=== PATIENT | male | born 1960 | race Two or more races ===

== ENCOUNTER 2019-01-20 16:55 | Observation (INO) | payer BC ==
[2019-01-20] MEDS ORDERED: Ondansetron 4 MG/2 ML SDV IVPUSH ONE (17:21)
[2019-01-20] MEDS ORDERED: Sodium Chloride 0.9% 1,000 ML IV ONE (17:21)
[2019-01-20] MEDS ORDERED: Ketorolac 30 MG/ML SDV IVPUSH ONE (17:21)
--- NOTE | 2019-01-20 17:33 | EDM.PDOC ---
ED HPI GENERAL MEDICAL PROBLEM - General Chief Complaint: Back Pain or Injury Stated Complaint: HIGH BACK PAIN Time Seen by Provider: 01/20/19 17:15 Source of Information: Reports: Patient History Limitations: Reports: Language Barrier - History of Present Illness INITIAL COMMENTS - FREE TEXT/NARRATIVE: HISTORY AND PHYSICAL: History of present illness: Patient is a 58-year-old male who presents to the ED today with concern of right lower abdominal pain 2 days that radiates to his mid back. Patient rates his discomfort a 9 out of 10 and states it's worse when he presses on his abdomen and better when he rests. Patient states he has not taken anything for the pain or discomfort. Patient denies any prior abdominal surgeries. Patient denies any health history. Patient does smoke about a half a pack a day for over 20-30 years. Patient denies fever, chills, chest pain, shortness of breath, or cough. Denies headache, neck stiff ness, change in vision, syncope, or near syncope. Denies nausea, vomiting, diarrhea, constipation, or dysuria. Has not noted any blood in urine or stool. Patient has been eating and drinking appropriately. Review of systems: As per history of present illness and below otherwise all systems reviewed and negative. Past medical history: As per history of present illness and as reviewed below otherwise noncontributory. Surgical history: As per history of present illness and as reviewed below otherwise noncontributory. Social history: See social history for further information Family history: As per history of present illness and as reviewed below otherwise noncontributory. Physical exam: General: Patient is alert, oriented, and in no acute distress. Patient sitting comfortably on exam table. HEENT: Atraumatic, normocephalic, pupils equal and reactive bilaterally, negative for conjunctival pallor or scleral icterus, mucous membranes moist, TMs normal bilaterally, throat clear, neck supple, nontender, trachea midline. No drooling or trismus noted. No meningeal signs. No hot potato voice noted. Lungs: Clear to auscultation, breath sounds equal bilaterally, chest nontender. Heart: S1S2, regular rate and rhythm without overt murmur Abdomen: Patient has moderate to severe pain of the right lower quadrant with guarding. Positive rebound tenderness. Soft, nondistended. Negative for masses or hepatosplenomegaly. Negative for costovertebral tenderness. Pelvis: Stable nontender. Genitourinary: Deferred. Rectal: Deferred. Skin: Intact, warm, dry. No lesions or rashes noted. Extremities: Atraumatic, negative for cords or calf pain. Neurovascular unremarkable. Neuro: Awake, alert, oriented. Cranial nerves II through XII unremarkable. Cerebellum unremarkable. Motor and sensory unremarkable throughout. Exam nonfocal. Notes: Patient does speak [place] is his primary language but does communicate in Maltese but somewhat limited. [employer] was offered but patient declines at this time Consult to Dr. Montalvo and will admit to observation. Initially patient was hesitant about admission due to concern about his work, after talking to his boss though, he is agreeable upon admission. Voices understanding and is agreeable to plan of care. Denies any further questions or concerns at this time. Diagnostics: CBC, CMP, abd/pelvic, lipase, UA, h pylori, EKG, troponin Therapeutics: Saline, Zofran, Toradol, Protonix Impression: Pancreatitis H. pylori infection Hypokalemia Plan: 1. Admit to observation to Dr. Montalvo. Definitive disposition and diagnosis as appropriate pending reevaluation and review of above. mid back Pain Score (Numeric/FACES): 10 - Related Data Allergies Allergy/AdvReac Type Severity Reaction Status Date / Time No Known Allergies Allergy Verified 01/20/19 17:10 Home Meds: Home Meds . [No Known Home Meds] 01/20/19 [History] Past Medical History - Past Health History Medical/Surgical History: Denies Medical/Surgical History Social & Family History - Family History Family Medical History: Noncontributory - Tobacco Use Smoking Status *Q: Current Every Day Smoker Years of Tobacco use: 35 Packs/Tins Daily: 0.5 - Recreational Drug Use Recreational Drug Use: No ED ROS GENERAL - Review of Systems Review Of Systems: ROS reveals no pertinent complaints other than HPI. ED EXAM, GI/ABD - Physical Exam Exam: See Below (See dictation) Course - Vital Signs Last Recorded V/S: Last Vital Signs Temp 36.4 C 01/20/19 17:08 Pulse 86 01/20/19 20:09 Resp 18 01/20/19 20:09 BP 171/102 H 01/20/19 20:09 Pulse Ox 96 01/20/19 20:09 - Orders/Labs/Meds Orders: Active Orders 24 hr Category Date Time Status Admission Status [Patient Status] [ADT] Stat ADT 01/20/19 20:39 Ordered EKG Documentation Completion [RC] STAT Care 01/20/19 17:22 Active Labs: Laboratory Tests 01/20/19 01/20/19 01/20/19 Range/Units 18:00 18:00 18:00 WBC 11.83 H (4.0-11.0) K/uL RBC 4.24 L (4.50-5.90) M/uL Hgb 14.0 (13.0-17.0) g/dL Hct 41.3 (38.0-50.0) % MCV 97.4 (80.0-98.0) fL MCH 33.0 H (27.0-32.0) pg MCHC 33.9 (31.0-37.0) g/dL RDW Std Deviation 45.8 (28.0-62.0) fl RDW Coeff of Jewell 13 (11.0-15.0) % Plt Count 249 (150-400) K/uL MPV 10.00 (7.40-12.00) fL Neut % (Auto) 58.3 (48.0-80.0) % Lymph % (Auto) 27.6 (16.0-40.0) % Iron % (Auto) 10.1 (0.0-15.0) % Eos % (Auto) 3.5 (0.0-7.0) % Baso % (Auto) 0.5 (0.0-1.5) % Neut # (Auto) 6.9 H (1.4-5.7) K/uL Lymph # (Auto) 3.3 H (0.6-2.4) K/uL Iron # (Auto) 1.2 H (0.0-0.8) K/uL Eos # (Auto) 0.4 (0.0-0.7) K/uL Baso # (Auto) 0.1 (0.0-0.1) K/uL Nucleated RBC % 0.0 /100WBC Nucleated RBCs # 0 K/uL Sodium 135 L (136-148) mmol/L Potassium 2.9 L (3.5-5.1) mmol/L Chloride 100 (98-107) mmol/L Carbon Dioxide 26.0 (21.0-32.0) mmol/L BUN 9 (7.0-18.0) mg/dL Creatinine 0.9 (0.8-1.3) mg/dL Est Cr Clr Drug Dosing 71.13 mL/min Estimated GFR (MDRD) > 60.0 ml/min Glucose 283 H (74-106) mg/dL Calcium 8.1 L (8.5-10.1) mg/dL Total Bilirubin 0.2 (0.2-1.0) mg/dL AST 19 (15-37) IU/L ALT 35 (14-63) IU/L Alkaline Phosphatase 84 (46-116) U/L Troponin I < 0.050 (0.000-0.056) ng/mL Total Protein 6.3 L (6.4-8.2) g/dL Albumin 3.0 L (3.4-5.0) g/dL Globulin 3.3 (2.6-4.0) g/dL Albumin/Globulin Ratio 0.9 (0.9-1.6) Lipase 739 H (73-393) U/L Urine Color Urine Appearance Urine pH (5.0-8.0) Ur Specific [place] (1.001-1.035) Urine Protein (NEGATIVE) mg/dL Urine Glucose (UA) (NEGATIVE) mg/dL Urine Ketones (NEGATIVE) mg/dL Urine Occult Blood (NEGATIVE) Urine Nitrite (NEGATIVE) Urine Bilirubin (NEGATIVE) Urine Urobilinogen (<2.0) EU/dL Ur Leukocyte Esterase (NEGATIVE) Urine RBC (0-2/HPF) Urine WBC (0-5/HPF) Ur Epithelial Cells (NONE-FEW) Urine Bacteria (NEGATIVE) H. pylori IgG Antibody POSITIVE H (NEG) 01/20/19 Range/Units 18:25 WBC (4.0-11.0) K/uL RBC (4.50-5.90) M/uL Hgb (13.0-17.0) g/dL Hct (38.0-50.0) % MCV (80.0-98.0) fL MCH (27.0-32.0) pg MCHC (31.0-37.0) g/dL RDW Std Deviation (28.0-62.0) fl RDW Coeff of [place]ell (11.0-15.0) % Plt Count (150-400) K/uL MPV (7.40-12.00) fL Neut % (Auto) (48.0-80.0) % Lymph % (Auto) (16.0-40.0) % Iron % (Auto) (0.0-15.0) % Eos % (Auto) (0.0-7.0) % Baso % (Auto) (0.0-1.5) % Neut # (Auto) (1.4-5.7) K/uL Lymph # (Auto) (0.6-2.4) K/uL Iron # (Auto) (0.0-0.8) K/uL Eos # (Auto) (0.0-0.7) K/uL Baso # (Auto) (0.0-0.1) K/uL Nucleated RBC % /100WBC Nucleated RBCs # K/uL Sodium (136-148) mmol/L Potassium (3.5-5.1) mmol/L Chloride (98-107) mmol/L Carbon Dioxide (21.0-32.0) mmol/L BUN (7.0-18.0) mg/dL Creatinine (0.8-1.3) mg/dL Est Cr Clr Drug Dosing mL/min Estimated GFR (MDRD) ml/min Glucose (74-106) mg/dL Calcium (8.5-10.1) mg/dL Total Bilirubin (0.2-1.0) mg/dL AST (15-37) IU/L ALT (14-63) IU/L Alkaline Phosphatase (46-116) U/L Troponin I (0.000-0.056) ng/mL Total Protein (6.4-8.2) g/dL Albumin (3.4-5.0) g/dL Globulin (2.6-4.0) g/dL Albumin/Globulin Ratio (0.9-1.6) Lipase (73-393) U/L Urine Color YELLOW Urine Appearance CLEAR Urine pH 6.0 (5.0-8.0) Ur Specific [place] 1.025 (1.001-1.035) Urine Protein 100 H (NEGATIVE) mg/dL Urine Glucose (UA) >=1000 (NEGATIVE) mg/dL Urine Ketones NEGATIVE (NEGATIVE) mg/dL Urine Occult Blood TRACE-INTACT H (NEGATIVE) Urine Nitrite NEGATIVE (NEGATIVE) Urine Bilirubin NEGATIVE (NEGATIVE) Urine Urobilinogen 0.2 (<2.0) EU/dL Ur Leukocyte Esterase NEGATIVE (NEGATIVE) Urine RBC 2-3 (0-2/HPF) Urine WBC 3-6 (0-5/HPF) Ur Epithelial Cells FEW (NONE-FEW) Urine Bacteria FEW (NEGATIVE) H. pylori IgG Antibody (NEG) Meds: Medications Discontinued Medications Generic Name Dose Route Start Last Admin Trade Name Fernanda PRN Reason Stop Dose Admin Sodium Chloride 1,000 mls @ 999 mls/hr 01/20/19 17:21 01/20/19 17:49 Normal Saline IV 01/20/19 18:21 999 mls/hr BOLUS ONE Administration Sterile Water Confirm 01/20/19 19:20 01/20/19 19:28 Sterile Water For Injection Administered 01/20/19 19:21 Not Given Dose 20 mls @ as directed .ROUTE .STK-MED ONE Iopamidol 100 ml 01/20/19 19:05 01/20/19 19:05 Isovue Multipack-370 (76%) IVPUSH 01/20/19 19:06 100 ml ONETIME ONE Administration Ketorolac Tromethamine 30 mg 01/20/19 17:21 01/20/19 17:50 Toradol IVPUSH 01/20/19 17:22 30 mg ONETIME ONE Administration Morphine Sulfate 2 mg 01/20/19 19:35 01/20/19 19:51 Morphine IVPUSH 01/20/19 19:36 2 mg ONETIME ONE Administration Ondansetron HCl 4 mg 01/20/19 17:21 01/20/19 17:52 Zofran IVPUSH 01/20/19 17:22 4 mg ONETIME ONE Administration Pantoprazole Sodium 80 mg 01/20/19 19:14 01/20/19 19:28 Protonix Iv IVPUSH 01/20/19 19:15 80 mg .BOLUS ONE Administration Sterile Water 20 ml 01/20/19 19:22 01/20/19 19:28 Sterile Water For Injection INJECT 01/20/19 19:23 20 ml ONETIME ONE Administration Departure - Departure Time of Disposition: 20:42 Disposition: Refer to Observation Clinical Impression: Hypokalemia, H. pylori infection Pancreatitis Qualifiers: Chronicity: acute Pancreatitis type: unspecified pancreatitis type Acute pancreatitis complication: unspecified Qualified Code(s): K85.90 - Acute pancreatitis without necrosis or infection, unspecified - Discharge Information Referrals: PCP,None [Primary Care Provider] - Forms: ED Department Discharge - My Orders Last 24 Hours: My Active Orders 01/20/19 17:22 EKG Documentation Completion [RC] STAT 01/20/19 20:39 Admission Status [Patient Status] [ADT] Stat - Assessment/Plan Last 24 Hours: My Active Orders 01/20/19 17:22 EKG Documentation Completion [RC] STAT 01/20/19 20:39 Admission Status [Patient Status] [ADT] Stat
[2019-01-20 18:38] LABS: CHLORIDE,CL 100 mmol/L (98-107); SODIUM,NA 135 mmol/L (136-148)
[2019-01-20] MEDS ORDERED: Iopamidol 755 MG/ML 500 ML Multipack Bottle IVPUSH ONE (19:05)
[2019-01-20] MEDS ORDERED: Pantoprazole 40 MG Vial IVPUSH ONE (19:14)
[2019-01-20] MEDS ORDERED: Water For Injection, Sterile 20 ML ONE (19:20)
[2019-01-20] MEDS ORDERED: Water For Injection, Sterile 20 ML SDV INJECT ONE (19:22)
[2019-01-20] MEDS ORDERED: Morphine 2 MG/ML Syringe IVPUSH ONE (19:35)
--- NOTE | 2019-01-20 20:10 | CT ---
INDICATION: Low back pain, bilateral lower quadrant pain. TECHNIQUE: CT abdomen and pelvis acquired with i.v. 100 mL Isovue 370. Coronal and sagittal reformats were obtained. COMPARISON: None FINDINGS: Lower chest: Unremarkable. Liver: Unremarkable. Spleen: Unremarkable. Pancreas: Unremarkable. Gallbladder and bile ducts: Unremarkable. Kidneys: Cluster of parapelvic renal cysts at the midpole, measuring 3.9 x 2.9 cm in axial dimensions on series 201, image 55. Simple exophytic left renal cyst, series 201, image 45, measuring 1.7 cm. No underlying hydronephrosis. No obstructing renal or ureteral calculi. Adrenal glands: Unremarkable. GI tract: Mild thickening of the distal esophagus with small hiatal hernia. Distal esophageal thickening may represent sequela from chronic reflux esophagitis. No abnormal gastric wall thickening. Duodenum crosses midline. Loops of small bowel and large bowel are normal in caliber. No interloop ascites or abnormal mesenteric fat stranding. Normal appendix is well visualized in the right lower quadrant. No acute inflammatory changes involving the large bowel. Vascular: No abdominal aortic aneurysm. There is moderate calcified and soft plaque involving the abdominal aorta. No dissection. Origins of the celiac artery and SMA are patent. Lymph nodes: Unremarkable. Miscellaneous: Unremarkable. No pneumoperitoneum is seen. No significant ascites is noted. Pelvic Organs: Unremarkable. Bones: Unremarkable for age. Moderate degenerative disc disease at L4-5 and L5-S1 levels. IMPRESSION: 1. No clear etiology identified for patient`s clinical symptoms of bilateral lower quadrant abdominal pain and low back pain. 2. Moderate degenerative disc disease at L4-L5 and L5-S1. 3. Normal appendix. 4. Likely a cluster of multiple parapelvic cysts at the right midpole. No underlying hydronephrosis. No radiopaque renal or ureteral calculi. Consider correlation with renal ultrasound for further characterization of right parapelvic renal cysts. 5. Small hiatal hernia with likely sequela of chronic reflux esophagitis in the distal esophagus. Dictated by Matt Salguero MD @ 01/20/2019 8:09:13 PM Please note that all CT scans at this facility use dose modulation, iterative reconstruction, and/or weight-based dosing when appropriate to reduce radiation dose to as low as reasonably achievable. Dictated by: Matt Salguero MD @ 01/20/2019 20:09:21 (Electronically Signed)
[2019-01-20] MEDS: Morphine 2 MG/ML Syringe IVPUSH PRN (22:51)
[2019-01-20] MEDS: Sodium Chloride 0.9% 1,000 ML IV SCH (22:51)
[2019-01-21] MEDS: Morphine 2 MG/ML Syringe IVPUSH PRN ×3 (05:52→15:48)
[2019-01-21 06:08] LABS: CHLORIDE,CL 106 mmol/L (98-107); SODIUM,NA 141 mmol/L (136-148)
[2019-01-21] MEDS: Sodium Chloride 0.9% 1,000 ML IV SCH ×3 (06:54→23:02)
--- NOTE | 2019-01-21 06:54 | PCM.HP ---
H&P History of Present Illness - General Date of Service: 01/21/19 Admit Problem/Dx: Admission Diagnosis/Problem Admission Diagnosis/Problem Pancreatitis Source of Information: Patient History Limitations: Reports: No Limitations - History of Present Illness Initial Comments - Free Text/Narative: The patient is a 58-year-old gentleman who presented to the emergency room with a complaint of abdominal pain that radiates to his back. He has described the pain as sharp and stabbing The patient was admitted to observation on the medical floor at approximately 10 PM. The patient reports that he has been having more pain in his back as opposed to his abdomen. He is denied any nausea or vomiting. The patient has had no specific aggravating or relieving factors. The patient has denied alcohol abuse. He does smoke. He also has denied any fever or chills. He also has not noticed any blood in his urine. The patient has been in his usual state of health and he does not take medications. Onset of Symptoms: Reports: Sudden Duration of Symptoms: Reports: Hour(s):, Getting Worse Location: Reports: Abdomen, Back Quality: Reports: Stabbing, Throbbing Severity: Moderate Improves with: Reports: Medication Worsens with: Reports: Movement Context: Denies: Sick Contact, Trauma Associated Symptoms: Reports: No Other Symptoms mid back Pain Score (Numeric/FACES): 7 - Related Data Allergies/Adverse Reactions: Allergies Allergy/AdvReac Type Severity Reaction Status Date / Time No Known Allergies Allergy Verified 01/20/19 23:58 Home Medications: Home Meds . [No Known Home Meds] 01/20/19 [History] Past Medical History - Past Health History Medical/Surgical History: Denies Medical/Surgical History HEENT History: Reports: None Cardiovascular History: Reports: None Respiratory History: Reports: None Gastrointestinal History: Reports: Helicobacter Pylori Genitourinary History: Reports: None Musculoskeletal History: Reports: None Neurological History: Reports: None Psychiatric History: Reports: None Endocrine/Metabolic History: Reports: None Hematologic History: Reports: None Immunologic History: Reports: None Oncologic (Cancer) History: Reports: None Dermatologic History: Reports: None - Infectious Disease History Infectious Disease History: Reports: None Social & Family History - Family History Family Medical History: Noncontributory - Tobacco Use Smoking Status *Q: Current Every Day Smoker Years of Tobacco use: 35 Packs/Tins Daily: 0.5 - Alcohol Use Alcohol Use History: Yes Number of Drinks Per Day: 2 Alcohol Use Frequency: Daily - Recreational Drug Use Recreational Drug Use: No - Living Situation & Occupation Living situation: Reports: , Alone Occupation: Employed H&P Review of Systems - Review of Systems: Review Of Systems: See Below General: Reports: Weakness HEENT: Reports: No Symptoms Pulmonary: Reports: No Symptoms Cardiovascular: Reports: No Symptoms Gastrointestinal: Reports: Abdominal Pain, Anorexia. Denies: Constipation, Diarrhea, Nausea, Vomiting Genitourinary: Reports: No Symptoms Musculoskeletal: Reports: Back Pain Skin: Reports: No Symptoms Psychiatric: Reports: No Symptoms Neurological: Reports: No Symptoms Hematologic/Lymphatic: Reports: No Symptoms Immunologic: Reports: No Symptoms Exam - Exam Exam: See Below - Vital Signs Vital Signs: Last Vital Signs Temp 36.6 C 01/21/19 04:00 Pulse 78 01/21/19 04:00 Resp 18 01/21/19 04:00 BP 147/80 H 01/21/19 04:00 Pulse Ox 94 L 01/21/19 04:00 Weight: 72.212 kg - Exam Quality Assessment: No: Supplemental Oxygen General: Alert, Oriented, Cooperative, Mild Distress HEENT: Conjunctiva Clear, EACs Clear, EOMI, Hearing Intact, Pupils Equal, PERRLA. No: Mucosa Moist & [place] (Dry) Neck: Supple, Trachea Midline Lungs: Clear to Auscultation, Normal Respiratory Effort Cardiovascular: Regular Rate, Regular Rhythm GI/Abdominal Exam: Normal Bowel Sounds, Soft, No Distention, No Abnormal Bruit, Tender (Epigastrium). No: Guarding, Rigid, Rebound (Male) Exam: Deferred Rectal (Males) Exam: Deferred Back Exam: Normal Inspection Extremities: Normal Inspection, No Pedal Edema Skin: Warm, Dry, Intact Neuro Extensive - Mental Status: Alert, Oriented x3 Psychiatric: Alert, Normal Affect, Normal Mood - Patient Data Lab Results Last 24 hrs: Laboratory Results - last 24 hr 01/20/19 01/20/19 01/20/19 Range/Units 18:00 18:00 18:00 WBC 11.83 H (4.0-11.0) K/uL RBC 4.24 L (4.50-5.90) M/uL Hgb 14.0 (13.0-17.0) g/dL Hct 41.3 (38.0-50.0) % MCV 97.4 (80.0-98.0) fL MCH 33.0 H (27.0-32.0) pg MCHC 33.9 (31.0-37.0) g/dL RDW Std Deviation 45.8 (28.0-62.0) fl RDW Coeff of Jewell 13 (11.0-15.0) % Plt Count 249 (150-400) K/uL MPV 10.00 (7.40-12.00) fL Neut % (Auto) 58.3 (48.0-80.0) % Lymph % (Auto) 27.6 (16.0-40.0) % [place] % (Auto) 10.1 (0.0-15.0) % Eos % (Auto) 3.5 (0.0-7.0) % Baso % (Auto) 0.5 (0.0-1.5) % Neut # (Auto) 6.9 H (1.4-5.7) K/uL Lymph # (Auto) 3.3 H (0.6-2.4) K/uL [place] # (Auto) 1.2 H (0.0-0.8) K/uL Eos # (Auto) 0.4 (0.0-0.7) K/uL Baso # (Auto) 0.1 (0.0-0.1) K/uL Nucleated RBC % 0.0 /100WBC Nucleated RBCs # 0 K/uL Sodium 135 L (136-148) mmol/L Potassium 2.9 L (3.5-5.1) mmol/L Chloride 100 (98-107) mmol/L Carbon Dioxide 26.0 (21.0-32.0) mmol/L BUN 9 (7.0-18.0) mg/dL Creatinine 0.9 (0.8-1.3) mg/dL Est Cr Clr Drug Dosing 71.13 mL/min Estimated GFR (MDRD) > 60.0 ml/min Glucose 283 H (74-106) mg/dL Calcium 8.1 L (8.5-10.1) mg/dL Magnesium (1.8-2.4) mg/dL Total Bilirubin 0.2 (0.2-1.0) mg/dL AST 19 (15-37) IU/L ALT 35 (14-63) IU/L Alkaline Phosphatase 84 (46-116) U/L Troponin I < 0.050 (0.000-0.056) ng/mL Total Protein 6.3 L (6.4-8.2) g/dL Albumin 3.0 L (3.4-5.0) g/dL Globulin 3.3 (2.6-4.0) g/dL Albumin/Globulin Ratio 0.9 (0.9-1.6) Lipase 739 H (73-393) U/L Urine Color Urine Appearance Urine pH (5.0-8.0) Ur Specific [place] (1.001-1.035) Urine Protein (NEGATIVE) mg/dL Urine Glucose (UA) (NEGATIVE) mg/dL Urine Ketones (NEGATIVE) mg/dL Urine Occult Blood (NEGATIVE) Urine Nitrite (NEGATIVE) Urine Bilirubin (NEGATIVE) Urine Urobilinogen (<2.0) EU/dL Ur Leukocyte Esterase (NEGATIVE) Urine RBC (0-2/HPF) Urine WBC (0-5/HPF) Ur Epithelial Cells (NONE-FEW) Urine Bacteria (NEGATIVE) H. pylori IgG Antibody POSITIVE H (NEG) 01/20/19 01/21/19 01/21/19 Range/Units 18:25 05:12 05:12 WBC 11.30 H (4.0-11.0) K/uL RBC 4.21 L (4.50-5.90) M/uL Hgb 13.5 (13.0-17.0) g/dL Hct 41.0 (38.0-50.0) % MCV 97.4 (80.0-98.0) fL MCH 32.1 H (27.0-32.0) pg MCHC 32.9 (31.0-37.0) g/dL RDW Std Deviation 46.1 (28.0-62.0) fl RDW Coeff of [place] 13 (11.0-15.0) % Plt Count 276 (150-400) K/uL MPV 10.50 (7.40-12.00) fL Neut % (Auto) 61.5 (48.0-80.0) % Lymph % (Auto) 26.4 (16.0-40.0) % [place] % (Auto) 8.7 (0.0-15.0) % Eos % (Auto) 2.9 (0.0-7.0) % Baso % (Auto) 0.5 (0.0-1.5) % Neut # (Auto) 7.0 H (1.4-5.7) K/uL Lymph # (Auto) 3.0 H (0.6-2.4) K/uL [place] # (Auto) 1.0 H (0.0-0.8) K/uL Eos # (Auto) 0.3 (0.0-0.7) K/uL Baso # (Auto) 0.1 (0.0-0.1) K/uL Nucleated RBC % 0.0 /100WBC Nucleated RBCs # 0 K/uL Sodium 141 (136-148) mmol/L Potassium 3.0 L (3.5-5.1) mmol/L Chloride 106 (98-107) mmol/L Carbon Dioxide 26.4 (21.0-32.0) mmol/L BUN 7 (7.0-18.0) mg/dL Creatinine 0.8 (0.8-1.3) mg/dL Est Cr Clr Drug Dosing 80.02 mL/min Estimated GFR (MDRD) > 60.0 ml/min Glucose 151 H (74-106) mg/dL Calcium 8.0 L (8.5-10.1) mg/dL Magnesium 1.9 (1.8-2.4) mg/dL Total Bilirubin (0.2-1.0) mg/dL AST (15-37) IU/L ALT (14-63) IU/L Alkaline Phosphatase (46-116) U/L Troponin I (0.000-0.056) ng/mL Total Protein (6.4-8.2) g/dL Albumin (3.4-5.0) g/dL Globulin (2.6-4.0) g/dL Albumin/Globulin Ratio (0.9-1.6) Lipase (73-393) U/L Urine Color YELLOW Urine Appearance CLEAR Urine pH 6.0 (5.0-8.0) Ur Specific [place] 1.025 (1.001-1.035) Urine Protein 100 H (NEGATIVE) mg/dL Urine Glucose (UA) >=1000 (NEGATIVE) mg/dL Urine Ketones NEGATIVE (NEGATIVE) mg/dL Urine Occult Blood TRACE-INTACT H (NEGATIVE) Urine Nitrite NEGATIVE (NEGATIVE) Urine Bilirubin NEGATIVE (NEGATIVE) Urine Urobilinogen 0.2 (<2.0) EU/dL Ur Leukocyte Esterase NEGATIVE (NEGATIVE) Urine RBC 2-3 (0-2/HPF) Urine WBC 3-6 (0-5/HPF) Ur Epithelial Cells FEW (NONE-FEW) Urine Bacteria FEW (NEGATIVE) H. pylori IgG Antibody (NEG) Result Diagrams: 01/21/19 05:12 01/21/19 05:12 - Problem List (1) Pancreatitis SNOMED Code(s): 75421632 ICD Code: K85.90 - ACUTE PANCREATITIS WITHOUT NECROSIS OR INFECTION, UNSP Status: Acute Priority: High Current Visit: Yes Qualifiers: Chronicity: acute Pancreatitis type: unspecified pancreatitis type Acute pancreatitis complication: unspecified Qualified Code(s): K85.90 - Acute pancreatitis without necrosis or infection, unspecified (2) Renal cyst SNOMED Code(s): 907203636 ICD Code: N28.1 - CYST OF KIDNEY, ACQUIRED Status: Acute Priority: High Current Visit: Yes (3) Acute mid back pain SNOMED Code(s): 663738570 ICD Code: M54.9 - DORSALGIA, UNSPECIFIED Status: Acute Priority: High Current Visit: Yes (4) Current smoker SNOMED Code(s): 54560456 ICD Code: F17.200 - NICOTINE DEPENDENCE, UNSPECIFIED, UNCOMPLICATED Status : Chronic Priority: Medium Current Visit: Yes (5) H. pylori infection SNOMED Code(s): 856228675 ICD Code: A04.8 - OTHER SPECIFIED BACTERIAL INTESTINAL INFECTIONS Status: Chronic Priority: Medium Current Visit: Yes (6) Hypokalemia SNOMED Code(s): 06987730 ICD Code: E87.6 - HYPOKALEMIA Status: Acute Priority: High Current Visit: Yes Problem List Initiated/Reviewed/Updated: Yes Orders Last 24hrs: Active Orders 24 hr Category Date Time Status Admission Status [Patient Status] [ADT] Stat ADT 01/20/19 20:39 Active EKG Documentation Completion [RC] STAT Care 01/20/19 17:22 Active NPO [Nothing Per Oral Diet] [DIET] Diet 01/21/19 Breakfast Active Abdomen Ltd [US] Routine Exams 01/21/19 07:00 Ordered Morphine Med 01/20/19 22:38 Active 2 mg IVPUSH Q4H PRN Sodium Chloride 0.9% [Normal Saline] 1,000 ml Med 01/20/19 22:45 Active IV ASDIRECTED Medication Orders Sodium Chloride (Normal Saline) 1,000 mls @ 125 mls/hr IV ASDIRECTED JAMES Last Admin: 01/20/19 22:51 Dose: 125 mls/hr Morphine Sulfate (Morphine) 2 mg IVPUSH Q4H PRN PRN Reason: Pain Last Admin: 01/21/19 05:52 Dose: 2 mg Admin: 01/20/19 22:51 Dose: 2 mg Assessment/Plan Comment:: The patient is an otherwise healthy 58-year-old gentleman who was admitted secondary to pancreatitis and associated symptoms. The patient will be kept nothing by mouth. He'll be fluid resuscitated with normal saline at 125 mg per hour. The patient will also have pain control with the use of IV morphine at 2 mg every 2 hours. The patient will also have his electrolytes replaced. I've also ordered an ultrasound of his right upper quadrant to better characterize his biliary duct along with his kidney cysts. The patient is having more back pain and I suspect that the pain that the patient is experiencing may be related to the renal cysts. Also the patient has positive antigen for H. pylori and he'll be kept on Protonix 40 mg by mouth twice a day. The patient will be started on Prevpac upon discharge. The patient will also be placed on Lovenox for DVT prophylaxis. He's been encouraged to ambulate. Once patient's symptoms have resolved and he has had some improvement and has been able to tolerate diet he should be appropriate for discharge.
[2019-01-21] MEDS: Enoxaparin 40 MG/0.4 ML Syringe SUBCUT SCH (09:43)
--- NOTE | 2019-01-21 14:11 | US ---
EXAMINATION: Right upper quadrant ultrasound HISTORY: Pain COMPARISON: CT dated 01/20/2019 TECHNIQUE: Grayscale, color Doppler and Doppler imaging obtained. FINDINGS: The visualized pancreas appears normal. Common bile duct measures 2 mm. Gallbladder wall thickness is normal. No pericholecystic fluid or shadowing gallstones. The liver is normal contour and echotexture without a focal hepatic mass. The right kidney measures 11 cm and the left kidney measures 11.8 cm [id number] without definite hydronephrosis. Renal cortical and peripelvic cysts are noted. Sonographic Beal sign is negative. IMPRESSION: 1. Renal cortical and peripelvic cysts without definite hydronephrosis. 2. No acute findings within the upper abdomen.
[2019-01-21] MEDS: Pantoprazole 40 MG in Sodium Chloride 0.9% 10 ML IVPUSH SCH (15:49)
[2019-01-21 16:10] LABS: HEMOGLOBIN A1C 7.9 % (4.5-6.2)
[2019-01-21] MEDS ORDERED: Pantoprazole 40 MG Tab.CR PO SCH (17:00)
[2019-01-21] MEDS: Insulin Aspart 100 Units/ML 3 ML Pen SUBCUT SCH ×2 (18:01→21:30)
[2019-01-21] MEDS ORDERED: Insulin Aspart 100 Units/ML 3 ML Pen SUBCUT SCH (21:00)
[2019-01-22 06:32] LABS: CHLORIDE,CL 106 mmol/L (98-107); SODIUM,NA 140 mmol/L (136-148)
[2019-01-22] MEDS: Sodium Chloride 0.9% 1,000 ML IV SCH (06:46)
[2019-01-22] MEDS: Insulin Aspart 100 Units/ML 3 ML Pen SUBCUT SCH (06:48)
[2019-01-22] MEDS: Enoxaparin 40 MG/0.4 ML Syringe SUBCUT SCH (08:45)
[2019-01-22] MEDS: Pantoprazole 40 MG in Sodium Chloride 0.9% 10 ML IVPUSH SCH (08:46)
--- NOTE | 2019-01-22 09:08 | PCM.DCSUM1 ---
Discharge Summary - Hospital Course HPI Initial Comments: Admitted to hospitalization with acute pancreatitis. Diagnosed with new onset diabetes mellitus type 2. Diagnosis: Stroke: No - Discharge Data Discharge Date: 01/22/19 Discharge Disposition: Home, Self-Care 01 Condition: Good - Discharge Diagnosis/Problem(s) (1) Diabetes mellitus type 2 in nonobese SNOMED Code(s): 241990460 ICD Code: E11.9 - TYPE 2 DIABETES MELLITUS WITHOUT COMPLICATIONS Status: Chronic Priority: High Problem Details: New onset (2) Pancreatitis SNOMED Code(s): 77831996 ICD Code: K85.90 - ACUTE PANCREATITIS WITHOUT NECROSIS OR INFECTION, UNSP Status: Resolved Priority: High Qualifiers: Chronicity: acute Pancreatitis type: unspecified pancreatitis type Acute pancreatitis complication: unspecified Qualified Code(s): K85.90 - Acute pancreatitis without necrosis or infection, unspecified (3) Renal cyst SNOMED Code(s): 597034515 ICD Code: N28.1 - CYST OF KIDNEY, ACQUIRED Status: Chronic Priority: High (4) Acute mid back pain SNOMED Code(s): 262492482 ICD Code: M54.9 - DORSALGIA, UNSPECIFIED Status: Chronic Priority: High (5) Current smoker SNOMED Code(s): 61409867 ICD Code: F17.200 - NICOTINE DEPENDENCE, UNSPECIFIED, UNCOMPLICATED Status : Chronic Priority: Medium (6) H. pylori infection SNOMED Code(s): 635324664 ICD Code: A04.8 - OTHER SPECIFIED BACTERIAL INTESTINAL INFECTIONS Status: Chronic Priority: Medium (7) Hypokalemia SNOMED Code(s): 92229289 ICD Code: E87.6 - HYPOKALEMIA Status: Acute Priority: High (8) HTN (hypertension) SNOMED Code(s): 31229102 ICD Code: I10 - ESSENTIAL (PRIMARY) HYPERTENSION Status: Acute Qualifiers: Hypertension type: essential hypertension Qualified Code(s): I10 - Essential (primary) hypertension - Patient Summary/Data Hospital Course: The patient is a 58-year-old gentleman who does not take medications at home was admitted on January 21, 2019 secondary to acute pancreatitis. The patient was noted to have renal cortical and peripelvic cyst without hydronephrosis of his right kidney with the visualized pancreas appearing normal. The patient had been admitted with severe back and epigastric pain. On January 21, 2019 patient had a hemoglobin A1c of 7.9%. The patient essentially has been diagnosed with new onset diabetes mellitus type 2. The patient had no previous signs or symptoms associated with diabetes mellitus. Is likely the pancreatitis have been caused from combination of alcohol use as well as diabetes. The patient had been recommended to abstain from alcohol. Initially the patient had been kept on fluid support, pain control with the use of narcotics and kept nothing by mouth. The patient had improved rapidly and his pain had resolved. The patient' s diet was advanced to clear liquids the following day and he was able to tolerate this. The patient also had his diet advanced to appropriate ADA diet and by day of discharge he had been able to tolerate this. The patient did have a brief encounter with junior copywriter and had been given information on his new onset diabetes. The patient's pancreatitis had also improved and he remained pain-free. Because of the patient's new onset diabetes mellitus type 2 he was started off with metformin 500 mg by mouth daily and this should be advanced as tolerated. The patient also had been noted to be positive for H. pylori antigen and he had been discharged on Prevpac. The patient further had been hypertensive and for renal protection he had been discharged on lisinopril 5 mg by mouth daily. He also been discharged on potassium supplement 10 mEq daily. The patient has been recommended to have good close follow-up with his primary care physician with regards to his new onset diabetes. The patient had improved sufficiently and he had been hemodynamically stable by day of discharge. The patient had been ambulating without difficulty. The patient is also to have an appropriate ADA diet and he has been informed of this. The patient will need to have a follow-up outpatient appointment with junior copywriter. He is also to have activity as tolerated. The patient has been hemodynamically stable and he has been discharged from acute hospitalization with recommendations above. - Patient Instructions Diet: Heart Healthy Diet, Diabetic Diet Activity: As Tolerated Showering/Bathing: No Showering Notify Provider of: Increased Pain - Discharge Plan *PRESCRIPTION DRUG MONITORING PROGRAM REVIEWED*: No *COPY OF PRESCRIPTION DRUG MONITORING REPORT IN PATIENT BRYNO: No Prescriptions/Med Rec: Lansoprazole/Amoxiciln/Clarith [Prevpac Patient Pack] 1 each PO DAILY #1 combo..pkg Lisinopril [Zestril] 5 mg PO DAILY #30 tablet metFORMIN [Glucophage] 500 mg PO DAILY #30 tablet Potassium Chloride [K-Tab ER] 10 meq PO DAILY #30 tablet.er Home Medications: Home Meds Lansoprazole/Amoxiciln/Clarith [Prevpac Patient Pack] 1 each PO DAILY #1 combo..pkg 01/22/19 [Rx] Lisinopril [Zestril] 5 mg PO DAILY #30 tablet 01/22/19 [Rx] Potassium Chloride [K-Tab ER] 10 meq PO DAILY #30 tablet.er 01/22/19 [Rx] metFORMIN [Glucophage] 500 mg PO DAILY #30 tablet 01/22/19 [Rx] Oxygen Therapy Mode: Room Air Patient Handouts: Glipizide; Metformin tablets, Type 2 Diabetes Mellitus, Diagnosis, Adult, Potassium chloride tablets, extended-release tablets or capsules, Amoxicillin; Clarithromycin; Lansoprazole tablets and capsules, Lisinopril tablets, Managing Your Hypertension, Diabetes Mellitus and Nutrition , Adult Referrals: Tonya Harris MD [Physician] - 02/02/19 10:00 am - Discharge Summary/Plan Comment DC Time >30 min.: Yes - General Info Date of Service: 01/23/19 Admission Dx/Problem (Free Text: Admission Diagnosis/Problem Admission Diagnosis/Problem Pancreatitis Subjective Update: Better today. Tolerating diet. Pain-free. Functional Status: Reports: Pain Controlled - Review of Systems General: Reports: No Symptoms HEENT: Reports: No Symptoms Pulmonary: Reports: No Symptoms Cardiovascular: Reports: No Symptoms Gastrointestinal: Reports: No Symptoms Genitourinary: Reports: No Symptoms Musculoskeletal: Reports: No Symptoms Skin: Reports: No Symptoms Neurological: Reports: No Symptoms Psychiatric: Reports: No Symptoms - Patient Data Vitals - Most Recent: Last Vital Signs Temp 36.9 C 01/22/19 08:00 Pulse 71 01/22/19 08:00 Resp 16 01/22/19 08:00 BP 150/84 H 01/22/19 08:00 Pulse Ox 98 01/22/19 08:00 Weight - Most Recent: 72.212 kg I&O - Last 24 hours: Intake & Output 01/21/19 01/22/19 01/22/19 22:59 06:59 14:59 Intake Total 2295 1777 Output Total 656 875 Balance 1535 902 Lab Results - Last 24 hrs: Laboratory Results - last 24 hr 01/21/19 01/21/19 01/21/19 Range/Units 05:12 16:26 21:28 WBC (4.0-11.0) K/uL RBC (4.50-5.90) M/uL Hgb (13.0-17.0) g/dL Hct (38.0-50.0) % MCV (80.0-98.0) fL MCH (27.0-32.0) pg MCHC (31.0-37.0) g/dL RDW Std Deviation (28.0-62.0) fl RDW Coeff of Jewell (11.0-15.0) % Plt Count (150-400) K/uL MPV (7.40-12.00) fL Neut % (Auto) (48.0-80.0) % Lymph % (Auto) (16.0-40.0) % [place] % (Auto) (0.0-15.0) % Eos % (Auto) (0.0-7.0) % Baso % (Auto) (0.0-1.5) % Neut # (Auto) (1.4-5.7) K/uL Lymph # (Auto) (0.6-2.4) K/uL [place] # (Auto) (0.0-0.8) K/uL Eos # (Auto) (0.0-0.7) K/uL Baso # (Auto) (0.0-0.1) K/uL Nucleated RBC % /100WBC Nucleated RBCs # K/uL Sodium (136-148) mmol/L Potassium (3.5-5.1) mmol/L Chloride (98-107) mmol/L Carbon Dioxide (21.0-32.0) mmol/L BUN (7.0-18.0) mg/dL Creatinine (0.8-1.3) mg/dL Est Cr Clr Drug Dosing mL/min Estimated GFR (MDRD) ml/min Glucose (74-106) mg/dL POC Glucose 83 74 (60-110) mg/dL Hemoglobin A1c 7.9 H (4.5-6.2) % Calcium (8.5-10.1) mg/dL Total Bilirubin (0.2-1.0) mg/dL AST (15-37) IU/L ALT (14-63) IU/L Alkaline Phosphatase (46-116) U/L Total Protein (6.4-8.2) g/dL Albumin (3.4-5.0) g/dL Globulin (2.6-4.0) g/dL Albumin/Globulin Ratio (0.9-1.6) 01/22/19 01/22/19 01/22/19 Range/Units 00:23 05:44 05:56 WBC 10.37 (4.0-11.0) K/uL RBC 4.02 L (4.50-5.90) M/uL Hgb 13.1 (13.0-17.0) g/dL Hct 38.8 (38.0-50.0) % MCV 96.5 (80.0-98.0) fL MCH 32.6 H (27.0-32.0) pg MCHC 33.8 (31.0-37.0) g/dL RDW Std Deviation 44.5 (28.0-62.0) fl RDW Coeff of Jewell 13 (11.0-15.0) % Plt Count 255 (150-400) K/uL MPV 10.00 (7.40-12.00) fL Neut % (Auto) 52.3 (48.0-80.0) % Lymph % (Auto) 33.8 (16.0-40.0) % [place] % (Auto) 10.5 (0.0-15.0) % Eos % (Auto) 2.9 (0.0-7.0) % Baso % (Auto) 0.5 (0.0-1.5) % Neut # (Auto) 5.4 (1.4-5.7) K/uL Lymph # (Auto) 3.5 H (0.6-2.4) K/uL [place] # (Auto) 1.1 H (0.0-0.8) K/uL Eos # (Auto) 0.3 (0.0-0.7) K/uL Baso # (Auto) 0.1 (0.0-0.1) K/uL Nucleated RBC % 0.0 /100WBC Nucleated RBCs # 0 K/uL Sodium (136-148) mmol/L Potassium (3.5-5.1) mmol/L Chloride (98-107) mmol/L Carbon Dioxide (21.0-32.0) mmol/L BUN (7.0-18.0) mg/dL Creatinine (0.8-1.3) mg/dL Est Cr Clr Drug Dosing mL/min Estimated GFR (MDRD) ml/min Glucose (74-106) mg/dL POC Glucose 61 102 (60-110) mg/dL Hemoglobin A1c (4.5-6.2) % Calcium (8.5-10.1) mg/dL Total Bilirubin (0.2-1.0) mg/dL AST (15-37) IU/L ALT (14-63) IU/L Alkaline Phosphatase (46-116) U/L Total Protein (6.4-8.2) g/dL Albumin (3.4-5.0) g/dL Globulin (2.6-4.0) g/dL Albumin/Globulin Ratio (0.9-1.6) 01/22/19 Range/Units 05:56 WBC (4.0-11.0) K/uL RBC (4.50-5.90) M/uL Hgb (13.0-17.0) g/dL Hct (38.0-50.0) % MCV (80.0-98.0) fL MCH (27.0-32.0) pg MCHC (31.0-37.0) g/dL RDW Std Deviation (28.0-62.0) fl RDW Coeff of Jewell (11.0-15.0) % Plt Count (150-400) K/uL MPV (7.40-12.00) fL Neut % (Auto) (48.0-80.0) % Lymph % (Auto) (16.0-40.0) % [place] % (Auto) (0.0-15.0) % Eos % (Auto) (0.0-7.0) % Baso % (Auto) (0.0-1.5) % Neut # (Auto) (1.4-5.7) K/uL Lymph # (Auto) (0.6-2.4) K/uL [place] # (Auto) (0.0-0.8) K/uL Eos # (Auto) (0.0-0.7) K/uL Baso # (Auto) (0.0-0.1) K/uL Nucleated RBC % /100WBC Nucleated RBCs # K/uL Sodium 140 (136-148) mmol/L Potassium 3.1 L (3.5-5.1) mmol/L Chloride 106 (98-107) mmol/L Carbon Dioxide 24.4 (21.0-32.0) mmol/L BUN 7 (7.0-18.0) mg/dL Creatinine 0.7 L (0.8-1.3) mg/dL Est Cr Clr Drug Dosing 91.45 mL/min Estimated GFR (MDRD) > 60.0 ml/min Glucose 106 (74-106) mg/dL POC Glucose (60-110) mg/dL Hemoglobin A1c (4.5-6.2) % Calcium 8.0 L (8.5-10.1) mg/dL Total Bilirubin 0.5 (0.2-1.0) mg/dL AST 23 (15-37) IU/L ALT 38 (14-63) IU/L Alkaline Phosphatase 69 (46-116) U/L Total Protein 5.9 L (6.4-8.2) g/dL Albumin 2.7 L (3.4-5.0) g/dL Globulin 3.2 (2.6-4.0) g/dL Albumin/Globulin Ratio 0.8 L (0.9-1.6) Med Orders - Current: Current Medications Enoxaparin Sodium (Lovenox) 40 mg SUBCUT Q24H [facility] Last Admin: 01/22/19 08:45 Dose: 40 mg Sodium Chloride (Normal Saline) 1,000 mls @ 125 mls/hr IV ASDIRECTED [facility] Last Admin: 01/22/19 06:46 Dose: 125 mls/hr Pantoprazole Sodium 40 mg/ (Sodium Chloride) 10 mls @ 300 mls/hr IVPUSH DAILY [facility] Last Admin: 01/22/19 08:46 Dose: 300 mls/hr Insulin Aspart (Novolog) 0 unit SUBCUT QIDACANDBED [facility]; Protocol Last Admin: 01/22/19 06:48 Dose: Not Given Morphine Sulfate (Morphine) 2 mg IVPUSH Q2H PRN PRN Reason: Pain Last Admin: 01/21/19 15:48 Dose: 2 mg Discontinued Medications Sodium Chloride (Normal Saline) 1,000 mls @ 999 mls/hr IV BOLUS ONE Stop: 01/20/19 18:21 Last Admin: 01/20/19 17:49 Dose: 999 mls/hr Sterile Water (Sterile Water For Injection) Confirm Administered Dose 20 mls @ as directed .ROUTE .STK-MED ONE Stop: 01/20/19 19:21 Last Admin: 01/20/19 19:28 Dose: Not Given Insulin Aspart (Novolog) 0 unit SUBCUT ACBREAKFASTANDBED [facility]; Protocol Iopamidol (Isovue Multipack-370 (76%)) 100 ml IVPUSH ONETIME ONE Stop: 01/20/19 19:06 Last Admin: 01/20/19 19:05 Dose: 100 ml Ketorolac Tromethamine (Toradol) 30 mg IVPUSH ONETIME ONE Stop: 01/20/19 17:22 Last Admin: 01/20/19 17:50 Dose: 30 mg Morphine Sulfate (Morphine) 2 mg IVPUSH ONETIME ONE Stop: 01/20/19 19:36 Last Admin: 01/20/19 19:51 Dose: 2 mg Morphine Sulfate (Morphine) 2 mg IVPUSH Q4H PRN PRN Reason: Pain Last Admin: 01/21/19 05:52 Dose: 2 mg Ondansetron HCl (Zofran) 4 mg IVPUSH ONETIME ONE Stop: 01/20/19 17:22 Last Admin: 01/20/19 17:52 Dose: 4 mg Pantoprazole Sodium (Protonix Iv) 80 mg IVPUSH .BOLUS ONE Stop: 01/20/19 19:15 Last Admin: 01/20/19 19:28 Dose: 80 mg Pantoprazole Sodium (Protonix) 40 mg PO BIDAC [facility] Sterile Water (Sterile Water For Injection) 20 ml INJECT ONETIME ONE Stop: 01/20/19 19:23 Last Admin: 01/20/19 19:28 Dose: 20 ml - Exam Quality Assessment: Denies: Supplemental Oxygen General: Reports: Alert, Oriented, Cooperative, No Acute Distress HEENT: Reports: Pupils Equal, Pupils Reactive, EOMI, Mucous Membr. Moist/[place] Neck: Reports: Supple, Trachea Midline Lungs: Reports: Clear to Auscultation, Normal Respiratory Effort Cardiovascular: Reports: Regular Rate, Regular Rhythm GI/Abdominal Exam: Normal Bowel Sounds, Soft, Non-Tender, No Distention Back Exam: Reports: Normal Inspection, Full Range of Motion Extremities: Normal Inspection, Normal Range of Motion, No Pedal Edema Skin: Reports: Warm, Dry, Intact Wound/Incisions: Reports: Healing Well Neurological: Reports: No New Focal Deficit Psy/Mental Status: Reports: Alert, Normal Affect
== END 2019-01-22 10:23 | disposition home or self-care (01) ==
LOC: MW.ED 16:55 → MW.MS 21:32
PROVIDERS: ADMIT Internal Medicine; ATTEND Internal Medicine
DX: K85.90 Acute pancreatitis without necrosis or infection, unspecified (principal); B96.81 Helicobacter pylori [H. pylori] as the cause of diseases classified elsewhere; N28.1 Cyst of kidney, acquired; E11.9 Type 2 diabetes mellitus without complications; E87.6 Hypokalemia; F17.210 Nicotine dependence, cigarettes, uncomplicated
CPT/HCPCS: 36415; 74177; 76705; 80048; 80053; 81001; 82962; 83036; 83690; 83735; 84484; 85025; 86677; 93005; 96361; 96372; 96374; 96375; 96376; 99285; C9113; G0378; J1650; J1885; J2270; J2405; J7040; J7050; Q9967; 99284

== ENCOUNTER 2021-04-16 07:29 | Inpatient (IN) | payer SELFPAY ==
[2021-04-16] MEDS ORDERED: Sodium Chloride 0.9% 1,000 ML IV STA (08:07)
[2021-04-16] MEDS ORDERED: Ketorolac 15 MG/ML SDV IVPUSH STA (08:08)
[2021-04-16 09:05] LABS: BLOOD UREA NITROGEN,BUN 12 mg/dL (7.0-18.0); CARBON DIOXIDE,CO2 28.5 mmol/L (21.0-32.0); CHLORIDE,CL 94 mmol/L (98-107); GLUCOSE RANDOM 276 mg/dL (74-106); POTASSIUM,K 3.7 mmol/L (3.5-5.1); SODIUM,NA 132 mmol/L (136-148)
[2021-04-16] MEDS ORDERED: Iopamidol 755 MG/ML 500 ML Multipack Bottle IVPUSH STA (09:19)
--- NOTE | 2021-04-16 10:03 | CT ---
Indication: Abdominal pain Technique: Volumetric multidetector CT images of the abdomen and pelvis were obtained after the administration of intravenous contrast. 100 cc Isovue 370 low osmolar intravenous contrast Comparison: CT abdomen and pelvis January 20, 2019 Findings: There is basilar atelectasis versus scar with calcified granuloma him here for right lung base. The liver is enlarged with moderate hepatomegaly. There is likely a simple cyst in the anterior right liver lobe. There is no focal abnormality. The portal vein is patent. The gallbladder is unremarkable without evidence of radiopaque calculus. There is no significant common biliary ductal dilatation or abrupt cut off. The spleen is normal in enhancement and size. The stomach and duodenum are grossly unremarkable. The pancreas is normal in enhancement without significant atrophy. The adrenal glands are unremarkable. There is again seen a large complex cystic mass lesion within the mid right kidney similar to previous exam. Additional cystic changes of the kidneys are appreciated. There is mild to moderate stool seen throughout the colon with demonstration of questionable mild thickening of the sigmoid colon without significant Eda colonic inflammation. The appendix is unremarkable. There is no significant mesenteric, retroperitoneal, or pelvic sidewall lymph nodes. The aorta is not aneurysmal with moderate scattered atherosclerotic calcification. There is mild thickening of the dome of the bladder. There is no free fluid or free air. The anterior abdominal wall is intact without significant hernias. The lumbar vertebral body heights are grossly maintained with [id number] degenerative disc disease. There is moderate facet arthrosis. Impression: Mild to moderate sigmoid diverticulosis with mild to moderate segmental thickening of the sigmoid colon which may represent developing low-grade diverticulitis. Stable cystic mass lesion within the right kidney. Stable hepatomegaly and hepatic steatosis. No other acute intra-abdominal abnormalities appreciated. Please note that all CT scans at this facility use dose modulation, iterative reconstruction, and/or weight-based dosing when appropriate to reduce radiation dose to as low as reasonably achievable. Dictated by Ric Ohara MD @ 04/16/2021 10:03:[address] Ric Ohara @ Apr 16 2021 10:03AM
[2021-04-16] MEDS ORDERED: Piperacillin/Tazobactam 3.375 GM in Sodium Chloride 0.9% 50 ML IV ONE (10:07)
--- NOTE | 2021-04-16 10:22 | EDM.PDOC ---
ED HPI GENERAL MEDICAL PROBLEM - General Chief Complaint: Abdominal Pain Stated Complaint: ABDOMINAL PAIN Time Seen by Provider: 04/16/21 07:55 Source of Information: Reports: Patient - History of Present Illness INITIAL COMMENTS - FREE TEXT/NARRATIVE: 60yo male presenting with abdominal pain - epigastric/periumbilical for the last 4 days - started after eating a hamburger on the first night. Nausea, vomited once last night. None since. Diarrhea worsening over this time. Pain does radiate into his back. 06/30. described as "strong" not stabbing or crampy. PMH: listed in computer as DM II with prescription for metformin, and HTN - patient denies this history and does not take these meds PSH: none SOC: tobacco daily ETOH - occasional DRUGS: none Abdomen Pain Score (Numeric/FACES): 10 lower back Pain Score (Numeric/FACES): 3 - Related Data Allergies Allergy/AdvReac Type Severity Reaction Status Date / Time No Known Allergies Allergy Verified 04/16/21 16:06 Home Meds: Home Meds . [No Known Home Meds] 04/16/21 [History] Past Medical History - Past Health History Medical/Surgical History: Denies Medical/Surgical History HEENT History: Reports: None Cardiovascular History: Reports: None Respiratory History: Reports: None Gastrointestinal History: Reports: Helicobacter Pylori Genitourinary History: Reports: None Musculoskeletal History: Reports: None Neurological History: Reports: None Psychiatric History: Reports: None Endocrine/Metabolic History: Reports: None Hematologic History: Reports: None Immunologic History: Reports: None Oncologic (Cancer) History: Reports: None Dermatologic History: Reports: None - Infectious Disease History Infectious Disease History: Reports: None - Past Surgical History Head Surgeries/Procedures: Reports: None HEENT Surgical History: Reports: None Cardiovascular Surgical History: Reports: None Respiratory Surgical History: Reports: None GI Surgical History: Reports: None Male Surgical History: Reports: None Endocrine Surgical History: Reports: None Neurological Surgical History: Reports: None Musculoskeletal Surgical History: Reports: None Oncologic Surgical History: Reports: None Dermatological Surgical History: Reports: None Social & Family History - Family History Family Medical History: No Pertinent Family History - Tobacco Use Tobacco Use Status *Q: Current Every Day Tobacco User Years of Tobacco use: 45 Packs/Tins Daily: 0.5 - Caffeine Use Caffeine Use: Reports: None - Recreational Drug Use Recreational Drug Use: No - Living Situation & Occupation Living situation: Reports: , Alone Occupation: Employed ED ROS GENERAL - Review of Systems Review Of Systems: See Below Constitutional: Denies: Fever Respiratory: Denies: Shortness of Breath Cardiovascular: Denies: Chest Pain GI/Abdominal: Reports: Abdominal Pain, Diarrhea. Denies: Bloody Stool, Constipation ED EXAM, GI/ABD - Physical Exam Exam: See Below General Appearance: Alert, WD/WN, No Apparent Distress Throat/Mouth: Other (MM slightly dry) Neck: Supple Respiratory/Chest: No Respiratory Distress Cardiovascular: Regular Rate, Rhythm GI/Abdominal Exam: Soft, No Distention, No Mass, Tender (diffusely, all 4 quadrants and epigastric. No rebound) Back Exam: Normal Inspection, Full Range of Motion. No: CVA Tenderness (L), CVA Tenderness (R) Extremities: Normal Inspection Neurological: Alert, Oriented #1 Interpretation EKG Date: 04/16/21 Time: 08:26 Rhythm: NSR Rate (Beats/Min): 80 [place]: Normal P-Wave: Present QRS: RBBB ST-T: Normal QT: Normal Course - Vital Signs Text/Narrative:: abdominal pain, radiating to back. Labs with elevated lipase, suspect pancreatitis - CT Abdomen/pelvis shows also findings of diverticulosis with early diverticulitis. Given IVF and zosyn. On reassessment patient reports feeling much more comfortable after toradol. Discussed recommendation for admission, he agrees. Last Recorded V/S: Last Vital Signs Temp 98.6 F 04/17/21 16:00 Pulse 68 04/17/21 16:00 Resp 16 04/17/21 16:00 BP 158/87 H 04/17/21 16:00 Pulse Ox 98 04/17/21 16:00 - Orders/Labs/Meds Orders: Medication Orders Dextrose/Water (50% Dextrose In Water 50 Ml Syringe) 50 ml IVPUSH ASDIRECTED PRN PRN Reason: Hypoglycemia Enoxaparin Sodium (Enoxaparin 40 Mg/0.4 Ml Syringe) 40 mg SUBCUT Q24H [facility] Last Admin: 04/17/21 11:08 Dose: 40 mg Documented by: Admin: 04/16/21 14:21 Dose: 40 mg Documented by: TORY Folic Acid (Folic Acid 50 Mg/10 Ml Mdv) 1 mg SUBCUT DAILY [facility] Last Admin: 04/17/21 09:56 Dose: 1 mg Documented by: Admin: 04/16/21 14:21 Dose: 1 mg Documented by: TORY Glucagon (Glucagon,Human Recombinant 1 Mg Vial) 1 mg IM ASDIRECTED PRN PRN Reason: Hypoglycemia Piperacillin Sod/Tazobactam (Sod 3.375 gm/ Sodium Chloride) 100 mls @ 200 mls/hr IV Q8H [facility] Last Admin: 04/17/21 19:35 Dose: 200 mls/hr Documented by: Infusion: 04/17/21 12:53 Dose: 200 mls/hr Documented by: Admin: 04/17/21 12:23 Dose: 200 mls/hr Documented by: Infusion: 04/17/21 04:04 Dose: 200 mls/hr Documented by: Admin: 04/17/21 03:34 Dose: 200 mls/hr Documented by: Infusion: 04/16/21 20:34 Dose: 200 mls/hr Documented by: Admin: 04/16/21 20:04 Dose: 200 mls/hr Documented by: Infusion: 04/16/21 13:47 Dose: 200 mls/hr Documented by: Admin: 04/16/21 13:17 Dose: 200 mls/hr Documented by: SAHARA Sodium Chloride (Normal Saline) 1,000 mls @ 200 mls/hr IV ASDIRECTED [facility] Last Admin: 04/17/21 17:29 Dose: 200 mls/hr Documented by: Infusion: 04/17/21 08:37 Dose: 200 mls/hr Documented by: Admin: 04/17/21 03:37 Dose: 200 mls/hr Documented by: Infusion: 04/17/21 03:26 Dose: 200 mls/hr Documented by: Admin: 04/16/21 22:26 Dose: 200 mls/hr Documented by: Infusion: 04/16/21 21:26 Dose: 200 mls/hr Documented by: Admin: 04/16/21 16:26 Dose: 200 mls/hr Documented by: CHARU Insulin Aspart (Insulin Aspart 100 Units/Ml 3 Ml Pen) 0 unit SUBCUT Q6H JAMES; Protocol Last Admin: 04/17/21 19:21 Dose: Not Given Documented by: Admin: 04/17/21 13:16 Dose: Not Given Documented by: Admin: 04/17/21 07:26 Dose: Not Given Documented by: Admin: 04/17/21 01:53 Dose: Not Given Documented by: Admin: 04/16/21 18:32 Dose: Not Given Documented by: Admin: 04/16/21 14:23 Dose: 1 unit Documented by: TORY Lorazepam (Lorazepam 2 Mg/Ml Sdv) 0 mg IVPUSH Q4H PRN; Protocol PRN Reason: CIWAA protocol Morphine Sulfate (Morphine 2 Mg/Ml Syringe) 2 mg IVPUSH Q4H PRN PRN Reason: Pain Ondansetron HCl (Ondansetron 4 Mg Tab.Dis) 4 mg PO Q4H PRN PRN Reason: nausea, able to take PO Labs: Laboratory Tests 04/16/21 04/16/21 04/16/21 Range/Units 08:17 08:28 08:28 WBC 12.14 H (4.0-11.0) K/uL RBC 4.53 (4.50-5.90) M/uL Hgb 15.3 (13.0-17.0) g/dL Hct 43.0 (38.0-50.0) % MCV 94.9 (80.0-98.0) fL MCH 33.8 H (27.0-32.0) pg MCHC 35.6 (31.0-37.0) g/dL RDW Std Deviation 42.2 (28.0-62.0) fl RDW Coeff of [place] 12 (11.0-15.0) % Plt Count 249 (150-400) K/uL MPV 10.70 (7.40-12.00) fL Neut % (Auto) 72.2 (48.0-80.0) % Lymph % (Auto) 15.8 L (16.0-40.0) % [place] % (Auto) 10.5 (0.0-15.0) % Eos % (Auto) 1.2 (0.0-7.0) % Baso % (Auto) 0.3 (0.0-1.5) % Neut # (Auto) 8.8 H (1.4-5.7) K/uL Lymph # (Auto) 1.9 (0.6-2.4) K/uL [place] # (Auto) 1.3 H (0.0-0.8) K/uL Eos # (Auto) 0.1 (0.0-0.7) K/uL Baso # (Auto) 0.0 (0.0-0.1) K/uL Nucleated RBC % 0.0 /100WBC Nucleated RBCs # 0 K/uL Sodium 132 L (136-148) mmol/L Potassium 3.7 (3.5-5.1) mmol/L Chloride 94 L (98-107) mmol/L Carbon Dioxide 28.5 (21.0-32.0) mmol/L BUN 12 (7.0-18.0) mg/dL Creatinine 0.8 (0.8-1.3) mg/dL Est Cr Clr Drug Dosing 81.19 mL/min Estimated GFR (MDRD) > 60.0 ml/min Glucose 276 H (74-106) mg/dL POC Glucose (70-99) mg/dL Calcium 8.1 L (8.5-10.1) mg/dL Total Bilirubin 0.8 (0.2-1.0) mg/dL AST 39 H (15-37) IU/L ALT 64 H (14-63) IU/L Alkaline Phosphatase 130 H (46-116) U/L Total Protein 7.1 (6.4-8.2) g/dL Albumin 3.1 L (3.4-5.0) g/dL Globulin 4.0 (2.6-4.0) g/dL Albumin/Globulin Ratio 0.8 L (0.9-1.6) Triglycerides (0-200) mg/dL Cholesterol (50-200) mg/dL LDL Cholesterol, Calc (60-180) mg/dL VLDL Cholesterol (5-55) mg/dL HDL Cholesterol (40-60) mg/dL Cholesterol/HDL Ratio (3.3-6.0) Lipase (73-393) U/L Urine Color YELLOW Urine Appearance CLEAR Urine pH 6.0 (5.0-8.0) Ur Specific [place] 1.025 (1.001-1.035) Urine Protein 100 H (NEGATIVE) mg/dL Urine Glucose (UA) 500 H (NEGATIVE) mg/dL Urine Ketones >=80 (NEGATIVE) mg/dL Urine Occult Blood SMALL H (NEGATIVE) Urine Nitrite NEGATIVE (NEGATIVE) Urine Bilirubin NEGATIVE (NEGATIVE) Urine Urobilinogen 0.2 (<2.0) EU/dL Ur Leukocyte Esterase NEGATIVE (NEGATIVE) Urine RBC 0-1 (0-2/HPF) Urine WBC 0-1 (0-5/HPF) Ur Epithelial Cells RARE (NONE-FEW) Urine Bacteria RARE (NEGATIVE) Urine Mucus LIGHT (NONE-MOD) Influenza Type A RNA (NEGATIVE) Influenza Type B RNA (NEGATIVE) SARS-CoV-2 RNA (TRAY) (NEGATIVE) 04/16/21 04/16/21 04/16/21 Range/Units 08:28 08:28 08:32 WBC (4.0-11.0) K/uL RBC (4.50-5.90) M/uL Hgb (13.0-17.0) g/dL Hct (38.0-50.0) % MCV (80.0-98.0) fL MCH (27.0-32.0) pg MCHC (31.0-37.0) g/dL RDW Std Deviation (28.0-62.0) fl RDW Coeff of [place] (11.0-15.0) % Plt Count (150-400) K/uL MPV (7.40-12.00) fL Neut % (Auto) (48.0-80.0) % Lymph % (Auto) (16.0-40.0) % [place] % (Auto) (0.0-15.0) % Eos % (Auto) (0.0-7.0) % Baso % (Auto) (0.0-1.5) % Neut # (Auto) (1.4-5.7) K/uL Lymph # (Auto) (0.6-2.4) K/uL [place] # (Auto) (0.0-0.8) K/uL Eos # (Auto) (0.0-0.7) K/uL Baso # (Auto) (0.0-0.1) K/uL Nucleated RBC % /100WBC Nucleated RBCs # K/uL Sodium (136-148) mmol/L Potassium (3.5-5.1) mmol/L Chloride (98-107) mmol/L Carbon Dioxide (21.0-32.0) mmol/L BUN (7.0-18.0) mg/dL Creatinine (0.8-1.3) mg/dL Est Cr Clr Drug Dosing mL/min Estimated GFR (MDRD) ml/min Glucose (74-106) mg/dL POC Glucose 259 H (70-99) mg/dL Calcium (8.5-10.1) mg/dL Total Bilirubin (0.2-1.0) mg/dL AST (15-37) IU/L ALT (14-63) IU/L Alkaline Phosphatase (46-116) U/L Total Protein (6.4-8.2) g/dL Albumin (3.4-5.0) g/dL Globulin (2.6-4.0) g/dL Albumin/Globulin Ratio (0.9-1.6) Triglycerides 159 (0-200) mg/dL Cholesterol 221 H (50-200) mg/dL LDL Cholesterol, Calc 133 (60-180) mg/dL VLDL Cholesterol 31 (5-55) mg/dL HDL Cholesterol 56 (40-60) mg/dL Cholesterol/HDL Ratio 3.9 (3.3-6.0) Lipase 2614 H (73-393) U/L Urine Color Urine Appearance Urine pH (5.0-8.0) Ur Specific [place] (1.001-1.035) Urine Protein (NEGATIVE) mg/dL Urine Glucose (UA) (NEGATIVE) mg/dL Urine Ketones (NEGATIVE) mg/dL Urine Occult Blood (NEGATIVE) Urine Nitrite (NEGATIVE) Urine Bilirubin (NEGATIVE) Urine Urobilinogen (<2.0) EU/dL Ur Leukocyte Esterase (NEGATIVE) Urine RBC (0-2/HPF) Urine WBC (0-5/HPF) Ur Epithelial Cells (NONE-FEW) Urine Bacteria (NEGATIVE) Urine Mucus (NONE-MOD) Influenza Type A RNA (NEGATIVE) Influenza Type B RNA (NEGATIVE) SARS-CoV-2 RNA (TRAY) (NEGATIVE) 04/16/21 Range/Units 09:38 WBC (4.0-11.0) K/uL RBC (4.50-5.90) M/uL Hgb (13.0-17.0) g/dL Hct (38.0-50.0) % MCV (80.0-98.0) fL MCH (27.0-32.0) pg MCHC (31.0-37.0) g/dL RDW Std Deviation (28.0-62.0) fl RDW Coeff of [place] (11.0-15.0) % Plt Count (150-400) K/uL MPV (7.40-12.00) fL Neut % (Auto) (48.0-80.0) % Lymph % (Auto) (16.0-40.0) % [place] % (Auto) (0.0-15.0) % Eos % (Auto) (0.0-7.0) % Baso % (Auto) (0.0-1.5) % Neut # (Auto) (1.4-5.7) K/uL Lymph # (Auto) (0.6-2.4) K/uL [place] # (Auto) (0.0-0.8) K/uL Eos # (Auto) (0.0-0.7) K/uL Baso # (Auto) (0.0-0.1) K/uL Nucleated RBC % /100WBC Nucleated RBCs # K/uL Sodium (136-148) mmol/L Potassium (3.5-5.1) mmol/L Chloride (98-107) mmol/L Carbon Dioxide (21.0-32.0) mmol/L BUN (7.0-18.0) mg/dL Creatinine (0.8-1.3) mg/dL Est Cr Clr Drug Dosing mL/min Estimated GFR (MDRD) ml/min Glucose (74-106) mg/dL POC Glucose (70-99) mg/dL Calcium (8.5-10.1) mg/dL Total Bilirubin (0.2-1.0) mg/dL AST (15-37) IU/L ALT (14-63) IU/L Alkaline Phosphatase (46-116) U/L Total Protein (6.4-8.2) g/dL Albumin (3.4-5.0) g/dL Globulin (2.6-4.0) g/dL Albumin/Globulin Ratio (0.9-1.6) Triglycerides (0-200) mg/dL Cholesterol (50-200) mg/dL LDL Cholesterol, Calc (60-180) mg/dL VLDL Cholesterol (5-55) mg/dL HDL Cholesterol (40-60) mg/dL Cholesterol/HDL Ratio (3.3-6.0) Lipase (73-393) U/L Urine Color Urine Appearance Urine pH (5.0-8.0) Ur Specific [place] (1.001-1.035) Urine Protein (NEGATIVE) mg/dL Urine Glucose (UA) (NEGATIVE) mg/dL Urine Ketones (NEGATIVE) mg/dL Urine Occult Blood (NEGATIVE) Urine Nitrite (NEGATIVE) Urine Bilirubin (NEGATIVE) Urine Urobilinogen (<2.0) EU/dL Ur Leukocyte Esterase (NEGATIVE) Urine RBC (0-2/HPF) Urine WBC (0-5/HPF) Ur Epithelial Cells (NONE-FEW) Urine Bacteria (NEGATIVE) Urine Mucus (NONE-MOD) Influenza Type A RNA NEGATIVE (NEGATIVE) Influenza Type B RNA NEGATIVE (NEGATIVE) SARS-CoV-2 RNA (TRAY) NEGATIVE (NEGATIVE) Meds: Medications Generic Name Dose Route Start Last Admin Trade Name Freq PRN Reason Stop Dose Admin Dextrose/Water 50 ml 04/16/21 13:30 50% Dextrose In Water 50 Ml Syringe IVPUSH ASDIRECTED PRN Hypoglycemia Enoxaparin Sodium 40 mg 04/16/21 12:00 04/17/21 11:08 Enoxaparin 40 Mg/0.4 Ml Syringe SUBCUT 40 mg Q24H JAMES Administration Folic Acid 1 mg 04/16/21 14:00 04/17/21 09:56 Folic Acid 50 Mg/10 Ml Mdv SUBCUT 1 mg DAILY JAMES Administration Glucagon 1 mg 04/16/21 13:30 Glucagon,Human Recombinant 1 Mg Vial IM ASDIRECTED PRN Hypoglycemia Piperacillin Sod/Tazobactam 100 mls @ 200 mls/hr 04/16/21 12:15 04/17/21 19:35 Sod 3.375 gm/ Sodium Chloride IV 200 mls/hr Q8H JAMES Administration Sodium Chloride 1,000 mls @ 200 mls/hr 04/16/21 13:30 04/17/21 17:29 Normal Saline IV 200 mls/hr ASDIRECTED JAMES Administration Insulin Aspart 0 unit 04/16/21 13:30 04/17/21 19:21 Insulin Aspart 100 Units/Ml 3 Ml Pen SUBCUT Not Given Q6H JAMES Protocol Lorazepam 0 mg 04/16/21 13:07 Lorazepam 2 Mg/Ml Sdv IVPUSH Q4H PRN [facility] protocol Protocol Morphine Sulfate 2 mg 04/17/21 12:23 Morphine 2 Mg/Ml Syringe IVPUSH Q4H PRN Pain Ondansetron HCl 4 mg 04/16/21 11:58 Ondansetron 4 Mg Tab.Dis PO Q4H PRN nausea, able to take PO Discontinued Medications Generic Name Dose Route Start Last Admin Trade Name Freq PRN Reason Stop Dose Admin Sodium Chloride 1,000 mls @ 999 mls/hr 04/16/21 08:07 04/16/21 08:18 Normal Saline IV 04/16/21 09:07 999 mls/hr STAT STA Administration Piperacillin Sod/Tazobactam 50 mls @ 100 mls/hr 04/16/21 10:07 04/16/21 10:33 Sod 3.375 gm/ Sodium Chloride IV 04/16/21 10:36 100 mls/hr ONETIME ONE Administration Sodium Chloride 1,000 mls @ 125 mls/hr 04/16/21 12:00 Normal Saline IV ASDIRECTED JAMES Sodium Chloride 1,000 mls @ 999 mls/hr 04/16/21 13:06 04/16/21 14:13 Normal Saline IV 04/16/21 14:06 999 mls/hr .Bolus ONE Administration Sodium Chloride 1,000 mls @ 999 mls/hr 04/16/21 14:30 04/16/21 15:28 Normal Saline IV 04/16/21 15:30 999 mls/hr .Bolus ONE Administration Potassium Chloride/Sodium Chloride 1,000 mls @ 200 mls/hr 04/17/21 08:15 Normal Saline With 40 Meq Kcl IV ASDIRECTED JAMES Potassium Chloride/Sodium Chloride 1,000 mls @ 200 mls/hr 04/17/21 11:00 04/17/21 10:59 Normal Saline With 40 Meq Kcl IV 04/17/21 15:59 200 mls/hr ONETIME ONE Administration Iopamidol 100 ml 04/16/21 09:19 04/16/21 09:20 Iopamidol 755 Mg/Ml 500 Ml Multipack Bottle IVPUSH 04/16/21 09:20 100 ml ONETIME STA Administration Ketorolac Tromethamine 15 mg 04/16/21 08:08 04/16/21 08:18 Ketorolac 15 Mg/Ml Sdv IVPUSH 04/16/21 08:09 15 mg STAT STA Administration Ketorolac Tromethamine 15 mg 04/17/21 12:18 Ketorolac 15 Mg/Ml Sdv IVPUSH 04/22/21 12:18 Q6H PRN Pain Morphine Sulfate 2 mg 04/16/21 11:58 Morphine 2 Mg/Ml Syringe IVPUSH 04/17/21 12:02 Q4HR PRN Pain (severe 7-10) Morphine Sulfate 2 mg 04/16/21 12:56 04/17/21 03:34 Morphine 2 Mg/Ml Syringe IVPUSH 2 mg Q2H PRN Administration Pain (severe 7-10) Thiamine HCl 100 mg 04/16/21 13:45 04/16/21 14:22 Thiamine 200 Mg/2 Ml Mdv IVPUSH 04/16/21 13:46 100 mg ONETIME ONE Administration Departure - Departure Time of Disposition: 10:17 Disposition: Admitted As Inpatient 65 Clinical Impression: Diabetes mellitus type 2 in nonobese, Diverticulitis, Pancreatitis - Discharge Information Sepsis Event Note (ED) - Evaluation Sepsis Screening Result: No Definite Risk ED Communication - Discussed Case With (1) Discussed Case With (1): Admitting Provider Person/s Notified (1): Lui Beavers Date: 04/16/21 Time Called: 10:17
[2021-04-16 10:25] LABS: CORONAVIRUS COVID-19 NAA NEGATIVE (NEGATIVE); INFLUENZA A NAA NEGATIVE (NEGATIVE); INFLUENZA B NAA NEGATIVE (NEGATIVE)
--- NOTE | 2021-04-16 11:11 | US ---
HISTORY: 60-year-old with abdominal pain and abnormal liver function studies. TECHNIQUE: Grayscale ultrasound examination of the abdomen and retroperitoneum was performed. COMPARISON: CT abdomen and pelvis performed earlier the same day. FINDINGS: Noncirrhotic liver morphology. Liver demonstrates abnormally increased echogenicity, a nonspecific finding that can be seen in setting of fatty infiltration. There is no significant biliary dilatation, and the common bile duct measures 2.6 mm. There is no ascites. The gallbladder is fluid-filled with no evidence of stones or wall thickening. No sonographic Beal`s sign. Right kidney measures 12.8 x 2.7 x 6.7 cm. Multiple parapelvic cysts. No sonographic evidence for hydronephrosis, mass, or stone. Visualized portions of the pancreas are unremarkable. IMPRESSION: 1. No sonographic evidence for cholelithiasis or acute cholecystitis. 2. Hepatic steatosis. Dictated by Rory Joseph MD @ 04/16/2021 11:09:[address] Rory Joseph @ Apr 16 2021 11:09AM
--- NOTE | 2021-04-16 11:50 | PCM.HP.2 ---
H&P History of Present Illness - General Date of Service: 04/16/21 Admit Problem/Dx: Admission Diagnosis/Problem Admission Diagnosis/Problem Pancreatitis Source of Information: Copyright Clerk History Limitations: Reports: Language Barrier, Other (History obtained via online japanese interpreter) - History of Present Illness Initial Comments - Free Text/Narative: 60-year-old male with a history of one episode of pancreatitis in 2019 presented to the ER complaining of epigastric and central abdominal pain radiating to his back which began after eating a hamburger on Thursday. Patient had one episode of vomiting last night which was nonbilious, nonbloody. He denies exacerbating factors. Patient's abdominal pain is currently 5/10. He denies nausea, diarrhea, bloody stools, dysuria, hematuria, chest pain or palpitations. He denies dyspnea on exertion. Patient denies a history of hyperlipidemia or hypertension. He states that he is currently being worked up for diabetes mellitus right now. Denies history of surgeries. Patient drinks 1 to 2 cups of tequila per week. Patient smokes 5 cigarettes/day. Patient denies recent travel or sick contacts. Associated Symptoms: Reports: Nausea/Vomiting. Denies: Confusion, Chest Pain, Diaphoresis, Fever/Chills, Headaches, Shortness of Breath, Weakness Abdomen Pain Score (Numeric/FACES): 10 - Related Data Allergies/Adverse Reactions: Allergies Allergy/AdvReac Type Severity Reaction Status Date / Time No Known Allergies Allergy Verified 04/16/21 16:06 Home Medications: Home Meds . [No Known Home Meds] 04/16/21 [History] Past Medical History - Past Health History Medical/Surgical History: Denies Medical/Surgical History (Currently being worked up for diabetes mellitus.) HEENT History: Reports: None Cardiovascular History: Reports: None Respiratory History: Reports: None Gastrointestinal History: Reports: Helicobacter Pylori, Pancreatitis Genitourinary History: Reports: None Musculoskeletal History: Reports: None Neurological History: Reports: None Psychiatric History: Reports: None Endocrine/Metabolic History: Reports: None Hematologic History: Reports: None Immunologic History: Reports: None Oncologic (Cancer) History: Reports: None Dermatologic History: Reports: None - Infectious Disease History Infectious Disease History: Reports: None, Helicobacter Pylori - Past Surgical History Head Surgeries/Procedures: Reports: None HEENT Surgical History: Reports: None Cardiovascular Surgical History: Reports: None Respiratory Surgical History: Reports: None GI Surgical History: Reports: None Male Surgical History: Reports: None Endocrine Surgical History: Reports: None Neurological Surgical History: Reports: None Musculoskeletal Surgical History: Reports: None Oncologic Surgical History: Reports: None Dermatological Surgical History: Reports: None Social & Family History - Family History Family Medical History: No Pertinent Family History - Tobacco Use Tobacco Use Status *Q: Current Every Day Tobacco User Years of Tobacco use: 45 Packs/Tins Daily: 0.5 - Caffeine Use Caffeine Use: Reports: None - Alcohol Use Alcohol Use Comment: Patient drinks 1 to 2 cups of tequila per week. - Recreational Drug Use Recreational Drug Use: No - Living Situation & Occupation Living situation: Reports: , Alone Occupation: Employed H&P Review of Systems - Review of Systems: Review Of Systems: See Below General: Denies: Fever, Chills, Weakness HEENT: Reports: No Symptoms Pulmonary: Denies: Shortness of Breath, Wheezing, Cough Cardiovascular: Denies: Chest Pain, Palpitations, Dyspnea on Exertion Gastrointestinal: Reports: Abdominal Pain, Vomiting. Denies: Bloody Stool, Constipation, Diarrhea, Hematemesis, Hematochezia, Nausea Genitourinary: Denies: Dysuria Musculoskeletal: Reports: No Symptoms Skin: Reports: No Symptoms Neurological: Reports: No Symptoms Hematologic/Lymphatic: Reports: No Symptoms Exam - Exam Exam: See Below - Vital Signs Vital Signs: Last Vital Signs Temp 97.5 F 04/16/21 10:37 Pulse 74 04/16/21 11:06 Resp 17 04/16/21 10:36 BP 146/81 H 04/16/21 11:06 Pulse Ox 97 04/16/21 11:06 Weight: 160 lb - Exam General: Alert, Oriented, Cooperative, Mild Distress HEENT: Conjunctiva Clear, EOMI Neck: Supple Lungs: Clear to Auscultation, Normal Respiratory Effort Cardiovascular: Regular Rate, Regular Rhythm GI/Abdominal Exam: Soft, Guarding, Tender. No: Rigid, Rebound Back Exam: No: CVA Tenderness (L), CVA Tenderness (R) Extremities: Normal Inspection, Normal Range of Motion. No: Pedal Edema Peripheral Pulses: 2+: Dorsalis Pedis (L), Dorsalis Pedis (R) Skin: Warm, Dry, Intact Neurological: Normal Speech Neuro Extensive - Mental Status: Alert, Oriented x3 - Patient Data Lab Results Last 24 hrs: Laboratory Results - last 24 hr 04/16/21 04/16/21 04/16/21 Range/Units 08:17 08:28 08:28 WBC 12.14 H (4.0-11.0) K/uL RBC 4.53 (4.50-5.90) M/uL Hgb 15.3 (13.0-17.0) g/dL Hct 43.0 (38.0-50.0) % MCV 94.9 (80.0-98.0) fL MCH 33.8 H (27.0-32.0) pg MCHC 35.6 (31.0-37.0) g/dL RDW Std Deviation 42.2 (28.0-62.0) fl RDW Coeff of [place] 12 (11.0-15.0) % Plt Count 249 (150-400) K/uL MPV 10.70 (7.40-12.00) fL Neut % (Auto) 72.2 (48.0-80.0) % Lymph % (Auto) 15.8 L (16.0-40.0) % [place] % (Auto) 10.5 (0.0-15.0) % Eos % (Auto) 1.2 (0.0-7.0) % Baso % (Auto) 0.3 (0.0-1.5) % Neut # (Auto) 8.8 H (1.4-5.7) K/uL Lymph # (Auto) 1.9 (0.6-2.4) K/uL [place] # (Auto) 1.3 H (0.0-0.8) K/uL Eos # (Auto) 0.1 (0.0-0.7) K/uL Baso # (Auto) 0.0 (0.0-0.1) K/uL Nucleated RBC % 0.0 /100WBC Nucleated RBCs # 0 K/uL Sodium 132 L (136-148) mmol/L Potassium 3.7 (3.5-5.1) mmol/L Chloride 94 L (98-107) mmol/L Carbon Dioxide 28.5 (21.0-32.0) mmol/L BUN 12 (7.0-18.0) mg/dL Creatinine 0.8 (0.8-1.3) mg/dL Est Cr Clr Drug Dosing 81.19 mL/min Estimated GFR (MDRD) > 60.0 ml/min Glucose 276 H (74-106) mg/dL POC Glucose (70-99) mg/dL Calcium 8.1 L (8.5-10.1) mg/dL Total Bilirubin 0.8 (0.2-1.0) mg/dL AST 39 H (15-37) IU/L ALT 64 H (14-63) IU/L Alkaline Phosphatase 130 H (46-116) U/L Total Protein 7.1 (6.4-8.2) g/dL Albumin 3.1 L (3.4-5.0) g/dL Globulin 4.0 (2.6-4.0) g/dL Albumin/Globulin Ratio 0.8 L (0.9-1.6) Triglycerides (0-200) mg/dL Cholesterol (50-200) mg/dL LDL Cholesterol, Calc (60-180) mg/dL VLDL Cholesterol (5-55) mg/dL HDL Cholesterol (40-60) mg/dL Cholesterol/HDL Ratio (3.3-6.0) Lipase (73-393) U/L Urine Color YELLOW Urine Appearance CLEAR Urine pH 6.0 (5.0-8.0) Ur Specific [place] 1.025 (1.001-1.035) Urine Protein 100 H (NEGATIVE) mg/dL Urine Glucose (UA) 500 H (NEGATIVE) mg/dL Urine Ketones >=80 (NEGATIVE) mg/dL Urine Occult Blood SMALL H (NEGATIVE) Urine Nitrite NEGATIVE (NEGATIVE) Urine Bilirubin NEGATIVE (NEGATIVE) Urine Urobilinogen 0.2 (<2.0) EU/dL Ur Leukocyte Esterase NEGATIVE (NEGATIVE) Urine RBC 0-1 (0-2/HPF) Urine WBC 0-1 (0-5/HPF) Ur Epithelial Cells RARE (NONE-FEW) Urine Bacteria RARE (NEGATIVE) Urine Mucus LIGHT (NONE-MOD) Influenza Type A RNA (NEGATIVE) Influenza Type B RNA (NEGATIVE) SARS-CoV-2 RNA (TRAY) (NEGATIVE) 04/16/21 04/16/21 04/16/21 Range/Units 08:28 08:28 08:32 WBC (4.0-11.0) K/uL RBC (4.50-5.90) M/uL Hgb (13.0-17.0) g/dL Hct (38.0-50.0) % MCV (80.0-98.0) fL MCH (27.0-32.0) pg MCHC (31.0-37.0) g/dL RDW Std Deviation (28.0-62.0) fl RDW Coeff of [place] (11.0-15.0) % Plt Count (150-400) K/uL MPV (7.40-12.00) fL Neut % (Auto) (48.0-80.0) % Lymph % (Auto) (16.0-40.0) % [place] % (Auto) (0.0-15.0) % Eos % (Auto) (0.0-7.0) % Baso % (Auto) (0.0-1.5) % Neut # (Auto) (1.4-5.7) K/uL Lymph # (Auto) (0.6-2.4) K/uL [place] # (Auto) (0.0-0.8) K/uL Eos # (Auto) (0.0-0.7) K/uL Baso # (Auto) (0.0-0.1) K/uL Nucleated RBC % /100WBC Nucleated RBCs # K/uL Sodium (136-148) mmol/L Potassium (3.5-5.1) mmol/L Chloride (98-107) mmol/L Carbon Dioxide (21.0-32.0) mmol/L BUN (7.0-18.0) mg/dL Creatinine (0.8-1.3) mg/dL Est Cr Clr Drug Dosing mL/min Estimated GFR (MDRD) ml/min Glucose (74-106) mg/dL POC Glucose 259 H (70-99) mg/dL Calcium (8.5-10.1) mg/dL Total Bilirubin (0.2-1.0) mg/dL AST (15-37) IU/L ALT (14-63) IU/L Alkaline Phosphatase (46-116) U/L Total Protein (6.4-8.2) g/dL Albumin (3.4-5.0) g/dL Globulin (2.6-4.0) g/dL Albumin/Globulin Ratio (0.9-1.6) Triglycerides 159 (0-200) mg/dL Cholesterol 221 H (50-200) mg/dL LDL Cholesterol, Calc 133 (60-180) mg/dL VLDL Cholesterol 31 (5-55) mg/dL HDL Cholesterol 56 (40-60) mg/dL Cholesterol/HDL Ratio 3.9 (3.3-6.0) Lipase 2614 H (73-393) U/L Urine Color Urine Appearance Urine pH (5.0-8.0) Ur Specific [place] (1.001-1.035) Urine Protein (NEGATIVE) mg/dL Urine Glucose (UA) (NEGATIVE) mg/dL Urine Ketones (NEGATIVE) mg/dL Urine Occult Blood (NEGATIVE) Urine Nitrite (NEGATIVE) Urine Bilirubin (NEGATIVE) Urine Urobilinogen (<2.0) EU/dL Ur Leukocyte Esterase (NEGATIVE) Urine RBC (0-2/HPF) Urine WBC (0-5/HPF) Ur Epithelial Cells (NONE-FEW) Urine Bacteria (NEGATIVE) Urine Mucus (NONE-MOD) Influenza Type A RNA (NEGATIVE) Influenza Type B RNA (NEGATIVE) SARS-CoV-2 RNA (TRAY) (NEGATIVE) 04/16/21 Range/Units 09:38 WBC (4.0-11.0) K/uL RBC (4.50-5.90) M/uL Hgb (13.0-17.0) g/dL Hct (38.0-50.0) % MCV (80.0-98.0) fL MCH (27.0-32.0) pg MCHC (31.0-37.0) g/dL RDW Std Deviation (28.0-62.0) fl RDW Coeff of [place] (11.0-15.0) % Plt Count (150-400) K/uL MPV (7.40-12.00) fL Neut % (Auto) (48.0-80.0) % Lymph % (Auto) (16.0-40.0) % [place] % (Auto) (0.0-15.0) % Eos % (Auto) (0.0-7.0) % Baso % (Auto) (0.0-1.5) % Neut # (Auto) (1.4-5.7) K/uL Lymph # (Auto) (0.6-2.4) K/uL [place] # (Auto) (0.0-0.8) K/uL Eos # (Auto) (0.0-0.7) K/uL Baso # (Auto) (0.0-0.1) K/uL Nucleated RBC % /100WBC Nucleated RBCs # K/uL Sodium (136-148) mmol/L Potassium (3.5-5.1) mmol/L Chloride (98-107) mmol/L Carbon Dioxide (21.0-32.0) mmol/L BUN (7.0-18.0) mg/dL Creatinine (0.8-1.3) mg/dL Est Cr Clr Drug Dosing mL/min Estimated GFR (MDRD) ml/min Glucose (74-106) mg/dL POC Glucose (70-99) mg/dL Calcium (8.5-10.1) mg/dL Total Bilirubin (0.2-1.0) mg/dL AST (15-37) IU/L ALT (14-63) IU/L Alkaline Phosphatase (46-116) U/L Total Protein (6.4-8.2) g/dL Albumin (3.4-5.0) g/dL Globulin (2.6-4.0) g/dL Albumin/Globulin Ratio (0.9-1.6) Triglycerides (0-200) mg/dL Cholesterol (50-200) mg/dL LDL Cholesterol, Calc (60-180) mg/dL VLDL Cholesterol (5-55) mg/dL HDL Cholesterol (40-60) mg/dL Cholesterol/HDL Ratio (3.3-6.0) Lipase (73-393) U/L Urine Color Urine Appearance Urine pH (5.0-8.0) Ur Specific [place] (1.001-1.035) Urine Protein (NEGATIVE) mg/dL Urine Glucose (UA) (NEGATIVE) mg/dL Urine Ketones (NEGATIVE) mg/dL Urine Occult Blood (NEGATIVE) Urine Nitrite (NEGATIVE) Urine Bilirubin (NEGATIVE) Urine Urobilinogen (<2.0) EU/dL Ur Leukocyte Esterase (NEGATIVE) Urine RBC (0-2/HPF) Urine WBC (0-5/HPF) Ur Epithelial Cells (NONE-FEW) Urine Bacteria (NEGATIVE) Urine Mucus (NONE-MOD) Influenza Type A RNA NEGATIVE (NEGATIVE) Influenza Type B RNA NEGATIVE (NEGATIVE) SARS-CoV-2 RNA (TRAY) NEGATIVE (NEGATIVE) Result Diagrams: 04/16/21 08:28 04/16/21 08:28 Sepsis Event Note - Evaluation Sepsis Screening Result: No Definite Risk - Focused Exam Vital Signs: Vital Signs Temp Pulse Resp BP Pulse Ox 04/16/21 11:06 74 146/81 H 97 04/16/21 10:37 97.5 F 04/16/21 10:36 78 17 136/81 98 04/16/21 09:30 84 17 148/90 H 99 04/16/21 07:55 97.3 F 99 17 142/89 H 99 - Problem List (1) Acute mid back pain SNOMED Code(s): 268794060 ICD Code: M54.9 - DORSALGIA, UNSPECIFIED Status: Chronic Priority: High Current Visit: Yes (2) Current smoker SNOMED Code(s): 02596449 ICD Code: F17.200 - NICOTINE DEPENDENCE, UNSPECIFIED, UNCOMPLICATED Status: Chronic Priority: Medium Current Visit: Yes (3) Diabetes mellitus type 2 in nonobese SNOMED Code(s): 680337647 ICD Code: E11.9 - TYPE 2 DIABETES MELLITUS WITHOUT COMPLICATIONS Status: Chronic Priority: High Current Visit: Yes Problem Details: New onset (4) Pancreatitis SNOMED Code(s): 36634705 ICD Code: K85.90 - ACUTE PANCREATITIS WITHOUT NECROSIS OR INFECTION, UNSP Status: Resolved Priority: High Current Visit: Yes Qualifiers: Chronicity: acute Pancreatitis type: unspecified pancreatitis type Acute pancreatitis complication: unspecified Qualified Code(s): K85.90 - Acute pancreatitis without necrosis or infection, unspecified (5) Diverticulosis SNOMED Code(s): 424892310 ICD Code: K57.90 - DVRTCLOS OF INTEST, PART UNSP, W/O PERF OR ABSCESS W/O BLEED Status: Acute Current Visit: Yes Problem List Initiated/Reviewed/Updated: Yes Orders Last 24hrs: Active Orders 24 hr Category Date Time Status Patient Status [ADT] Routine ADT 04/16/21 10:22 Active EKG Documentation Completion [RC] STAT Care 04/16/21 08:06 Active Assessment/Plan Comment:: Pancreatitis: Elevated lipase. Patient will be given 2 boluses of normal saline followed by maintenance normal saline at 200 mL/h. NPO. Pain control with morphine 2 mg every 2 hours as needed. Ultrasound was negative for gallstones. Diverticulosis: CT abdomen showed diverticulosis with possible development of diverticulitis. Patient started on Zosyn 3.375 mg every 8 hours. Patient will be placed on CIWA protocol and be given thiamine and folic acid. DVT prophylaxis with Lovenox 40 mg. CODE STATUS: Full code.
[2021-04-16] MEDS ORDERED: Ondansetron 4 MG Tab.DIS PO PRN (11:58)
[2021-04-16] MEDS ORDERED: Morphine 2 MG/ML SYRINGE IVPUSH PRN (11:58)
[2021-04-16] MEDS ORDERED: Sodium Chloride 0.9% 1,000 ML IV SCH (12:00)
[2021-04-16] MEDS ORDERED: Sodium Chloride 0.9% 1,000 ML IV ONE ×2 (13:06→14:30)
[2021-04-16] MEDS ORDERED: LORazepam 2 MG/ML SDV IVPUSH PRN (13:07)
[2021-04-16] MEDS ORDERED: Thiamine 100 MG in Sodium Chloride 0.9% 100 ML IV ONE (13:09)
[2021-04-16] MEDS: Piperacillin/Tazobactam 3.375 GM in Sodium Chloride 0.9% 100 ML IV SCH ×2 (13:17→20:04)
[2021-04-16] MEDS: Morphine 2 MG/ML SYRINGE IVPUSH PRN ×4 (13:19→22:24)
[2021-04-16] MEDS ORDERED: Glucagon,Human Recombinant 1 MG Vial IM PRN (13:30)
[2021-04-16] MEDS ORDERED: 50% Dextrose in Water 50 ML Syringe IVPUSH PRN (13:30)
[2021-04-16] MEDS ORDERED: Thiamine 200 MG/2 ML MDV IVPUSH ONE (13:45)
[2021-04-16] MEDS: Enoxaparin 40 MG/0.4 ML Syringe SUBCUT SCH (14:21)
[2021-04-16] MEDS: Folic Acid 50 MG/10 ML MDV SUBCUT SCH (14:21)
[2021-04-16] MEDS: Insulin Aspart 100 Units/ML 3 ML Pen SUBCUT SCH ×2 (14:23→18:32)
[2021-04-16] MEDS: Sodium Chloride 0.9% 1,000 ML IV SCH ×2 (16:26→22:26)
[2021-04-17] MEDS: Insulin Aspart 100 Units/ML 3 ML Pen SUBCUT SCH ×4 (01:53→19:21)
[2021-04-17] MEDS: Morphine 2 MG/ML SYRINGE IVPUSH PRN ×2 (03:34→23:29)
[2021-04-17] MEDS: Piperacillin/Tazobactam 3.375 GM in Sodium Chloride 0.9% 100 ML IV SCH ×3 (03:34→19:35)
[2021-04-17] MEDS: Sodium Chloride 0.9% 1,000 ML IV SCH ×3 (03:37→23:20)
[2021-04-17 06:46] LABS: BLOOD UREA NITROGEN,BUN 10 mg/dL (7.0-18.0); CARBON DIOXIDE,CO2 19.4 mmol/L (21.0-32.0); CHLORIDE,CL 105 mmol/L (98-107); GLUCOSE RANDOM 102 mg/dL (74-106); POTASSIUM,K 3.2 mmol/L (3.5-5.1); SODIUM,NA 138 mmol/L (136-148)
[2021-04-17] MEDS ORDERED: Sodium Chloride 0.9% with KCl 1,000 ML IV SCH (08:15)
[2021-04-17] MEDS: Folic Acid 50 MG/10 ML MDV SUBCUT SCH (09:56)
[2021-04-17] MEDS ORDERED: Sodium Chloride 0.9% with KCl 1,000 ML IV ONE (11:00)
[2021-04-17] MEDS: Enoxaparin 40 MG/0.4 ML Syringe SUBCUT SCH (11:08)
[2021-04-17] MEDS ORDERED: Ketorolac 15 MG/ML SDV IVPUSH PRN (12:18)
--- NOTE | 2021-04-17 14:43 | PCM.PN ---
- General Info Date of Service: 04/17/21 Admission Dx/Problem (Free Text): Admission Diagnosis/Problem Admission Diagnosis/Problem Pancreatitis Subjective Update: 60-year-old male admitted for acute pancreatitis. Patient remains n.p.o. and is on maintenance normal saline at 200 mL/h. Patient is on day 2 of Zosyn. Pain is controlled with morphine 2 mg every 2 hours. Patient is on CIWA protocol but denies signs or symptoms of agitation. Patient denies abdominal pain, nausea, vomiting, fever and chills. No acute overnight events. Patient continues to have lower back pain which he believes is musculoskeletal. - Review of Systems General: Denies: Fever, Chills HEENT: Reports: No Symptoms Pulmonary: Denies: Shortness of Breath, Pleuritic Chest Pain, Cough Cardiovascular: Denies: Chest Pain, Palpitations, Edema Gastrointestinal: Denies: Abdominal Pain, Constipation, Diarrhea, Hematochezia, Melena, Nausea, Vomiting Genitourinary: Denies: Dysuria, Frequency, Burning Musculoskeletal: Reports: Back Pain Skin: Reports: No Symptoms Neurological: Reports: No Symptoms - Patient Data Vitals - Most Recent: Last Vital Signs Temp 97.9 F 04/17/21 08:00 Pulse 81 04/17/21 08:00 Resp 16 04/17/21 08:00 BP 159/78 H 04/17/21 08:00 Pulse Ox 97 04/17/21 08:00 Weight - Most Recent: 148 lb I&O - Last 24 Hours: Intake & Output 04/16/21 04/17/21 04/17/21 22:59 06:59 14:59 Intake Total 100 Output Total 480 Balance -480 100 Lab Results Last 24 Hours: Laboratory Results - last 24 hr 04/16/21 04/16/21 04/17/21 Range/Units 14:25 18:27 01:43 WBC (4.0-11.0) K/uL RBC (4.50-5.90) M/uL Hgb (13.0-17.0) g/dL Hct (38.0-50.0) % MCV (80.0-98.0) fL MCH (27.0-32.0) pg MCHC (31.0-37.0) g/dL RDW Std Deviation (28.0-62.0) fl RDW Coeff of Jewell (11.0-15.0) % Plt Count (150-400) K/uL MPV (7.40-12.00) fL Neut % (Auto) (48.0-80.0) % Lymph % (Auto) (16.0-40.0) % Fajardo % (Auto) (0.0-15.0) % Eos % (Auto) (0.0-7.0) % Baso % (Auto) (0.0-1.5) % Neut # (Auto) (1.4-5.7) K/uL Lymph # (Auto) (0.6-2.4) K/uL Fajardo # (Auto) (0.0-0.8) K/uL Eos # (Auto) (0.0-0.7) K/uL Baso # (Auto) (0.0-0.1) K/uL Nucleated RBC % /100WBC Nucleated RBCs # K/uL Sodium (136-148) mmol/L Potassium (3.5-5.1) mmol/L Chloride (98-107) mmol/L Carbon Dioxide (21.0-32.0) mmol/L BUN (7.0-18.0) mg/dL Creatinine (0.8-1.3) mg/dL Est Cr Clr Drug Dosing mL/min Estimated GFR (MDRD) ml/min Glucose (74-106) mg/dL POC Glucose 173 H 144 H 129 H (70-99) mg/dL Calcium (8.5-10.1) mg/dL Magnesium (1.8-2.4) mg/dL Total Bilirubin (0.2-1.0) mg/dL AST (15-37) IU/L ALT (14-63) IU/L Alkaline Phosphatase (46-116) U/L Total Protein (6.4-8.2) g/dL Albumin (3.4-5.0) g/dL Globulin (2.6-4.0) g/dL Albumin/Globulin Ratio (0.9-1.6) 04/17/21 04/17/21 04/17/21 Range/Units 05:34 05:34 05:34 WBC 12.57 H (4.0-11.0) K/uL RBC 3.87 L (4.50-5.90) M/uL Hgb 12.7 L (13.0-17.0) g/dL Hct 37.1 L (38.0-50.0) % MCV 95.9 (80.0-98.0) fL MCH 32.8 H (27.0-32.0) pg MCHC 34.2 (31.0-37.0) g/dL RDW Std Deviation 42.5 (28.0-62.0) fl RDW Coeff of Jewell 12 (11.0-15.0) % Plt Count 205 (150-400) K/uL MPV 10.90 (7.40-12.00) fL Neut % (Auto) 63.8 (48.0-80.0) % Lymph % (Auto) 22.4 (16.0-40.0) % Fajardo % (Auto) 10.8 (0.0-15.0) % Eos % (Auto) 2.4 (0.0-7.0) % Baso % (Auto) 0.6 (0.0-1.5) % Neut # (Auto) 8.0 H (1.4-5.7) K/uL Lymph # (Auto) 2.8 H (0.6-2.4) K/uL Fajardo # (Auto) 1.4 H (0.0-0.8) K/uL Eos # (Auto) 0.3 (0.0-0.7) K/uL Baso # (Auto) 0.1 (0.0-0.1) K/uL Nucleated RBC % 0.0 /100WBC Nucleated RBCs # 0 K/uL Sodium 138 (136-148) mmol/L Potassium 3.2 L (3.5-5.1) mmol/L Chloride 105 (98-107) mmol/L Carbon Dioxide 19.4 L (21.0-32.0) mmol/L BUN 10 (7.0-18.0) mg/dL Creatinine 0.6 L (0.8-1.3) mg/dL Est Cr Clr Drug Dosing 93.12 mL/min Estimated GFR (MDRD) > 60.0 ml/min Glucose 102 (74-106) mg/dL POC Glucose (70-99) mg/dL Calcium 6.9 L (8.5-10.1) mg/dL Magnesium 1.9 (1.8-2.4) mg/dL Total Bilirubin 0.7 (0.2-1.0) mg/dL AST 29 (15-37) IU/L ALT 43 (14-63) IU/L Alkaline Phosphatase 92 (46-116) U/L Total Protein 5.3 L (6.4-8.2) g/dL Albumin 2.2 L (3.4-5.0) g/dL Globulin 3.1 (2.6-4.0) g/dL Albumin/Globulin Ratio 0.7 L (0.9-1.6) 04/17/21 04/17/21 Range/Units 06:26 12:19 WBC (4.0-11.0) K/uL RBC (4.50-5.90) M/uL Hgb (13.0-17.0) g/dL Hct (38.0-50.0) % MCV (80.0-98.0) fL MCH (27.0-32.0) pg MCHC (31.0-37.0) g/dL RDW Std Deviation (28.0-62.0) fl RDW Coeff of Jewell (11.0-15.0) % Plt Count (150-400) K/uL MPV (7.40-12.00) fL Neut % (Auto) (48.0-80.0) % Lymph % (Auto) (16.0-40.0) % Fajardo % (Auto) (0.0-15.0) % Eos % (Auto) (0.0-7.0) % Baso % (Auto) (0.0-1.5) % Neut # (Auto) (1.4-5.7) K/uL Lymph # (Auto) (0.6-2.4) K/uL Fajardo # (Auto) (0.0-0.8) K/uL Eos # (Auto) (0.0-0.7) K/uL Baso # (Auto) (0.0-0.1) K/uL Nucleated RBC % /100WBC Nucleated RBCs # K/uL Sodium (136-148) mmol/L Potassium (3.5-5.1) mmol/L Chloride (98-107) mmol/L Carbon Dioxide (21.0-32.0) mmol/L BUN (7.0-18.0) mg/dL Creatinine (0.8-1.3) mg/dL Est Cr Clr Drug Dosing mL/min Estimated GFR (MDRD) ml/min Glucose (74-106) mg/dL POC Glucose 108 H 103 H (70-99) mg/dL Calcium (8.5-10.1) mg/dL Magnesium (1.8-2.4) mg/dL Total Bilirubin (0.2-1.0) mg/dL AST (15-37) IU/L ALT (14-63) IU/L Alkaline Phosphatase (46-116) U/L Total Protein (6.4-8.2) g/dL Albumin (3.4-5.0) g/dL Globulin (2.6-4.0) g/dL Albumin/Globulin Ratio (0.9-1.6) Med Orders - Current: Current Medications Dextrose/Water (50% Dextrose In Water 50 Ml Syringe) 50 ml IVPUSH ASDIRECTED PRN PRN Reason: Hypoglycemia Enoxaparin Sodium (Enoxaparin 40 Mg/0.4 Ml Syringe) 40 mg SUBCUT Q24H [facility] Last Admin: 04/17/21 11:08 Dose: 40 mg Documented by: Folic Acid (Folic Acid 50 Mg/10 Ml Mdv) 1 mg SUBCUT DAILY [facility] Last Admin: 04/17/21 09:56 Dose: 1 mg Documented by: Glucagon (Glucagon,Human Recombinant 1 Mg Vial) 1 mg IM ASDIRECTED PRN PRN Reason: Hypoglycemia Piperacillin Sod/Tazobactam (Sod 3.375 gm/ Sodium Chloride) 100 mls @ 200 mls/hr IV Q8H [facility] Last Admin: 04/17/21 12:23 Dose: 200 mls/hr Documented by: Sodium Chloride (Normal Saline) 1,000 mls @ 200 mls/hr IV ASDIRECTED [facility] Last Admin: 04/17/21 03:37 Dose: 200 mls/hr Documented by: Potassium Chloride/Sodium Chloride (Normal Saline With 40 Meq Kcl) 1,000 mls @ 200 mls/hr IV ONETIME ONE Stop: 04/17/21 15:59 Last Admin: 04/17/21 10:59 Dose: 200 mls/hr Documented by: Insulin Aspart (Insulin Aspart 100 Units/Ml 3 Ml Pen) 0 unit SUBCUT Q6H JAMES; Protocol Last Admin: 04/17/21 13:16 Dose: Not Given Documented by: Lorazepam (Lorazepam 2 Mg/Ml Sdv) 0 mg IVPUSH Q4H PRN; Protocol PRN Reason: CIWAA protocol Morphine Sulfate (Morphine 2 Mg/Ml Syringe) 2 mg IVPUSH Q4H PRN PRN Reason: Pain Ondansetron HCl (Ondansetron 4 Mg Tab.Dis) 4 mg PO Q4H PRN PRN Reason: nausea, able to take PO Discontinued Medications Sodium Chloride (Normal Saline) 1,000 mls @ 999 mls/hr IV STAT STA Stop: 04/16/21 09:07 Last Admin: 04/16/21 08:18 Dose: 999 mls/hr Documented by: Piperacillin Sod/Tazobactam (Sod 3.375 gm/ Sodium Chloride) 50 mls @ 100 mls/hr IV ONETIME ONE Stop: 04/16/21 10:36 Last Admin: 04/16/21 10:33 Dose: 100 mls/hr Documented by: Sodium Chloride (Normal Saline) 1,000 mls @ 125 mls/hr IV ASDIRECTED JAMES Sodium Chloride (Normal Saline) 1,000 mls @ 999 mls/hr IV .Bolus ONE Stop: 04/16/21 14:06 Last Admin: 04/16/21 14:13 Dose: 999 mls/hr Documented by: Sodium Chloride (Normal Saline) 1,000 mls @ 999 mls/hr IV .Bolus ONE Stop: 04/16/21 15:30 Last Admin: 04/16/21 15:28 Dose: 999 mls/hr Documented by: Potassium Chloride/Sodium Chloride (Normal Saline With 40 Meq Kcl) 1,000 mls @ 200 mls/hr IV ASDIRECTED JAMES Iopamidol (Iopamidol 755 Mg/Ml 500 Ml Multipack Bottle) 100 ml IVPUSH ONETIME STA Stop: 04/16/21 09:20 Last Admin: 04/16/21 09:20 Dose: 100 ml Documented by: Ketorolac Tromethamine (Ketorolac 15 Mg/Ml Sdv) 15 mg IVPUSH STAT STA Stop: 04/16/21 08:09 Last Admin: 04/16/21 08:18 Dose: 15 mg Documented by: Ketorolac Tromethamine (Ketorolac 15 Mg/Ml Sdv) 15 mg IVPUSH Q6H PRN PRN Reason: Pain Stop: 04/22/21 12:18 Morphine Sulfate (Morphine 2 Mg/Ml Syringe) 2 mg IVPUSH Q4HR PRN PRN Reason: Pain (severe 7-10) Stop: 04/17/21 12:02 Morphine Sulfate (Morphine 2 Mg/Ml Syringe) 2 mg IVPUSH Q2H PRN PRN Reason: Pain (severe 7-10) Last Admin: 04/17/21 03:34 Dose: 2 mg Documented by: Thiamine HCl (Thiamine 200 Mg/2 Ml Mdv) 100 mg IVPUSH ONETIME ONE Stop: 04/16/21 13:46 Last Admin: 04/16/21 14:22 Dose: 100 mg Documented by: - Exam General: Alert, Oriented, Cooperative, No Acute Distress HEENT: Pupils Reactive Neck: Supple Lungs: Clear to Auscultation, Normal Respiratory Effort Cardiovascular: Regular Rate, Regular Rhythm, No Murmurs GI/Abdominal Exam: Soft, No Distention, Tender. No: Guarding, Rebound Back Exam: Normal Inspection, Full Range of Motion, Paraspinal Tenderness. No: CVA Tenderness (L), CVA Tenderness (R), Vertebral Tenderness Extremities: Normal Inspection, Normal Range of Motion, No Pedal Edema. No: Joint Swelling, Nuris's Sign Peripheral Pulses: 2+: Dorsalis Pedis (L), Dorsalis Pedis (R) Skin: Warm, Dry, Intact Neurological: No New Focal Deficit - Patient Data Lab Results Last 24 hrs: Laboratory Results - last 24 hr 04/16/21 04/16/21 04/17/21 Range/Units 14:25 18:27 01:43 WBC (4.0-11.0) K/uL RBC (4.50-5.90) M/uL Hgb (13.0-17.0) g/dL Hct (38.0-50.0) % MCV (80.0-98.0) fL MCH (27.0-32.0) pg MCHC (31.0-37.0) g/dL RDW Std Deviation (28.0-62.0) fl RDW Coeff of Jewell (11.0-15.0) % Plt Count (150-400) K/uL MPV (7.40-12.00) fL Neut % (Auto) (48.0-80.0) % Lymph % (Auto) (16.0-40.0) % Fajardo % (Auto) (0.0-15.0) % Eos % (Auto) (0.0-7.0) % Baso % (Auto) (0.0-1.5) % Neut # (Auto) (1.4-5.7) K/uL Lymph # (Auto) (0.6-2.4) K/uL Fajardo # (Auto) (0.0-0.8) K/uL Eos # (Auto) (0.0-0.7) K/uL Baso # (Auto) (0.0-0.1) K/uL Nucleated RBC % /100WBC Nucleated RBCs # K/uL Sodium (136-148) mmol/L Potassium (3.5-5.1) mmol/L Chloride (98-107) mmol/L Carbon Dioxide (21.0-32.0) mmol/L BUN (7.0-18.0) mg/dL Creatinine (0.8-1.3) mg/dL Est Cr Clr Drug Dosing mL/min Estimated GFR (MDRD) ml/min Glucose (74-106) mg/dL POC Glucose 173 H 144 H 129 H (70-99) mg/dL Calcium (8.5-10.1) mg/dL Magnesium (1.8-2.4) mg/dL Total Bilirubin (0.2-1.0) mg/dL AST (15-37) IU/L ALT (14-63) IU/L Alkaline Phosphatase (46-116) U/L Total Protein (6.4-8.2) g/dL Albumin (3.4-5.0) g/dL Globulin (2.6-4.0) g/dL Albumin/Globulin Ratio (0.9-1.6) 04/17/21 04/17/21 04/17/21 Range/Units 05:34 05:34 05:34 WBC 12.57 H (4.0-11.0) K/uL RBC 3.87 L (4.50-5.90) M/uL Hgb 12.7 L (13.0-17.0) g/dL Hct 37.1 L (38.0-50.0) % MCV 95.9 (80.0-98.0) fL MCH 32.8 H (27.0-32.0) pg MCHC 34.2 (31.0-37.0) g/dL RDW Std Deviation 42.5 (28.0-62.0) fl RDW Coeff of Jewell 12 (11.0-15.0) % Plt Count 205 (150-400) K/uL MPV 10.90 (7.40-12.00) fL Neut % (Auto) 63.8 (48.0-80.0) % Lymph % (Auto) 22.4 (16.0-40.0) % Fajardo % (Auto) 10.8 (0.0-15.0) % Eos % (Auto) 2.4 (0.0-7.0) % Baso % (Auto) 0.6 (0.0-1.5) % Neut # (Auto) 8.0 H (1.4-5.7) K/uL Lymph # (Auto) 2.8 H (0.6-2.4) K/uL Fajardo # (Auto) 1.4 H (0.0-0.8) K/uL Eos # (Auto) 0.3 (0.0-0.7) K/uL Baso # (Auto) 0.1 (0.0-0.1) K/uL Nucleated RBC % 0.0 /100WBC Nucleated RBCs # 0 K/uL Sodium 138 (136-148) mmol/L Potassium 3.2 L (3.5-5.1) mmol/L Chloride 105 (98-107) mmol/L Carbon Dioxide 19.4 L (21.0-32.0) mmol/L BUN 10 (7.0-18.0) mg/dL Creatinine 0.6 L (0.8-1.3) mg/dL Est Cr Clr Drug Dosing 93.12 mL/min Estimated GFR (MDRD) > 60.0 ml/min Glucose 102 (74-106) mg/dL POC Glucose (70-99) mg/dL Calcium 6.9 L (8.5-10.1) mg/dL Magnesium 1.9 (1.8-2.4) mg/dL Total Bilirubin 0.7 (0.2-1.0) mg/dL AST 29 (15-37) IU/L ALT 43 (14-63) IU/L Alkaline Phosphatase 92 (46-116) U/L Total Protein 5.3 L (6.4-8.2) g/dL Albumin 2.2 L (3.4-5.0) g/dL Globulin 3.1 (2.6-4.0) g/dL Albumin/Globulin Ratio 0.7 L (0.9-1.6) 04/17/21 04/17/21 Range/Units 06:26 12:19 WBC (4.0-11.0) K/uL RBC (4.50-5.90) M/uL Hgb (13.0-17.0) g/dL Hct (38.0-50.0) % MCV (80.0-98.0) fL MCH (27.0-32.0) pg MCHC (31.0-37.0) g/dL RDW Std Deviation (28.0-62.0) fl RDW Coeff of Jewell (11.0-15.0) % Plt Count (150-400) K/uL MPV (7.40-12.00) fL Neut % (Auto) (48.0-80.0) % Lymph % (Auto) (16.0-40.0) % Fajardo % (Auto) (0.0-15.0) % Eos % (Auto) (0.0-7.0) % Baso % (Auto) (0.0-1.5) % Neut # (Auto) (1.4-5.7) K/uL Lymph # (Auto) (0.6-2.4) K/uL Fajardo # (Auto) (0.0-0.8) K/uL Eos # (Auto) (0.0-0.7) K/uL Baso # (Auto) (0.0-0.1) K/uL Nucleated RBC % /100WBC Nucleated RBCs # K/uL Sodium (136-148) mmol/L Potassium (3.5-5.1) mmol/L Chloride (98-107) mmol/L Carbon Dioxide (21.0-32.0) mmol/L BUN (7.0-18.0) mg/dL Creatinine (0.8-1.3) mg/dL Est Cr Clr Drug Dosing mL/min Estimated GFR (MDRD) ml/min Glucose (74-106) mg/dL POC Glucose 108 H 103 H (70-99) mg/dL Calcium (8.5-10.1) mg/dL Magnesium (1.8-2.4) mg/dL Total Bilirubin (0.2-1.0) mg/dL AST (15-37) IU/L ALT (14-63) IU/L Alkaline Phosphatase (46-116) U/L Total Protein (6.4-8.2) g/dL Albumin (3.4-5.0) g/dL Globulin (2.6-4.0) g/dL Albumin/Globulin Ratio (0.9-1.6) Result Diagrams: 04/17/21 05:34 04/17/21 05:34 Sepsis Event Note - Evaluation Sepsis Screening Result: No Definite Risk - Focused Exam Vital Signs: Vital Signs Temp Pulse Resp BP Pulse Ox 04/17/21 08:00 97.9 F 81 16 159/78 H 97 04/17/21 04:00 98.1 F 75 19 140/75 97 - Problem List & Annotations (1) Acute mid back pain SNOMED Code(s): 831492158 Code(s): M54.9 - DORSALGIA, UNSPECIFIED Status: Chronic Priority: High Current Visit: Yes (2) Current smoker SNOMED Code(s): 12778954 Code(s): F17.200 - NICOTINE DEPENDENCE, UNSPECIFIED, UNCOMPLICATED Status: Chronic Priority: Medium Current Visit: Yes (3) Diabetes mellitus type 2 in nonobese SNOMED Code(s): 294116580 Code(s): E11.9 - TYPE 2 DIABETES MELLITUS WITHOUT COMPLICATIONS Status: Chronic Priority: High Current Visit: Yes Annotation/Comment:: New onset (4) Pancreatitis SNOMED Code(s): 61877790 Code(s): K85.90 - ACUTE PANCREATITIS WITHOUT NECROSIS OR INFECTION, UNSP Status: Resolved Priority: High Current Visit: Yes Qualifiers: Chronicity: acute Pancreatitis type: unspecified pancreatitis type Acute pancreatitis complication: unspecified Qualified Code(s): K85.90 - Acute pancreatitis without necrosis or infection, unspecified (5) Diverticulosis SNOMED Code(s): 296873420 Code(s): K57.90 - DVRTCLOS OF INTEST, PART UNSP, W/O PERF OR ABSCESS W/O BLEED Status: Acute Current Visit: Yes - Problem List Review Problem List Initiated/Reviewed/Updated: Yes - My Orders Last 24 Hours: My Active Orders 04/16/21 14:00 Folic Acid 1 mg SUBCUT DAILY 04/17/21 11:00 Sodium Chloride 0.9% with KCl [Normal Saline with 40 mEq KCl] 1,000 ml IV ONETIME 04/17/21 12:23 Morphine 2 mg IVPUSH Q4H PRN - Plan Plan:: Patient remains on maintenance normal saline at 200 mL/h. Pain control with morphine. We will wean his morphine to every 4 hours and attempt to feed him dinner this evening. Abdominal pain has subsided. Hypokalemia: Patient will be repleted with 40 mEq potassium IV. Diverticulosis: CT abdomen showed diverticulosis with possible development of diverticulitis. Patient on Zosyn 3.375 mg every 8 hours. Patient on CIWA protocol. Patient did not require any Ativan. DVT prophylaxis with Lovenox 40 mg. CODE STATUS: Full code.
[2021-04-18] MEDS: Morphine 2 MG/ML SYRINGE IVPUSH PRN (04:21)
[2021-04-18] MEDS: Piperacillin/Tazobactam 3.375 GM in Sodium Chloride 0.9% 100 ML IV SCH (04:22)
[2021-04-18] MEDS: Sodium Chloride 0.9% 1,000 ML IV SCH ×2 (04:23→09:56)
[2021-04-18 07:29] LABS: BLOOD UREA NITROGEN,BUN 7 mg/dL (7.0-18.0); CARBON DIOXIDE,CO2 20.5 mmol/L (21.0-32.0); CHLORIDE,CL 106 mmol/L (98-107); GLUCOSE RANDOM 159 mg/dL (74-106); POTASSIUM,K 3.5 mmol/L (3.5-5.1); SODIUM,NA 139 mmol/L (136-148)
[2021-04-18] MEDS ORDERED: Insulin Aspart 100 Units/ML 3 ML Pen SUBCUT SCH (07:30)
[2021-04-18] MEDS: Folic Acid 50 MG/10 ML MDV SUBCUT SCH (09:01)
--- NOTE | 2021-04-18 12:25 | PCM.DCSUM1 ---
Discharge Summary - Hospital Course Free Text/Narrative:: 60-year-old male was admitted for acute pancreatitis. Patient ate a hamburger 3 days prior to onset of abdominal pain. Patient had abdominal pain radiating to his back and one episode of vomiting of nonbilious nonbloody vomit. He presented to the ED where he was found to have an elevated lipase. CT abdomen pelvis showed diverticulosis in the sigmoid colon with developing low-grade diverticulosis. Patient was started on Zosyn and made NPO. He received normal saline bolus x3. Patient was placed on maintenance normal saline at 200 mL/h. Patient received morphine for pain. Patient's abdominal pain improved and IV morphine was weaned. Patient tolerated clear liquids and was advanced to regular diet which he tolerated. Patient had elevated blood pressure. Patient is being discharged with ciprofloxacin and Flagyl for 7 days. He will need close follow-up with his PCP for hypertension and infection management. He will need a colonoscopy outpatient. 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 SNOMED Code(s): 303226579 ICD Code: E11.9 - TYPE 2 DIABETES MELLITUS WITHOUT COMPLICATIONS Status: Chronic Priority: High Current Visit: Yes Problem Details: New onset (4) Pancreatitis SNOMED Code(s): 64804771 ICD Code: K85.90 - ACUTE PANCREATITIS WITHOUT NECROSIS OR INFECTION, UNSP Status: Resolved Priority: High Current Visit: Yes Qualifiers: Chronicity: acute Pancreatitis type: unspecified pancreatitis type Acute pancreatitis complication: unspecified Qualified Code(s): K85.90 - Acute pancreatitis without necrosis or infection, unspecified (5) Diverticulosis SNOMED Code(s): 962333676 ICD Code: K57.90 - DVRTCLOS OF INTEST, PART UNSP, W/O PERF OR ABSCESS W/O BLEED Status: Acute Current Visit: Yes - Patient Instructions Diet: Regular Diet as Tolerated Activity: As Tolerated Notify Provider of: Fever, Increased Pain, Nausea and/or Vomiting Other/Special Instructions: Please seek medical attention if you experience severe abdominal pain, nausea or vomiting, bloody diarrhea. - Discharge Plan *PRESCRIPTION DRUG MONITORING PROGRAM REVIEWED*: No *COPY OF PRESCRIPTION DRUG MONITORING REPORT IN PATIENT BRYON: No Prescriptions/Med Rec: Ciprofloxacin [Ciprofloxacin HCl] 500 mg PO BID 5 Days #10 tab metroNIDAZOLE [Flagyl] 500 mg PO TID 5 Days #15 tablet Home Medications: Home Meds Ciprofloxacin [Ciprofloxacin HCl] 500 mg PO BID 5 Days #10 tab 04/18/21 [Rx] metroNIDAZOLE [Flagyl] 500 mg PO TID 5 Days #15 tablet 04/18/21 [Rx] Patient Handouts: Acute Pancreatitis, [id number], Ciprofloxacin tablets, Metronidazole tablets or capsules Referrals: Chauncey Wetzel MD [Resident] - 04/25/21 3:00 pm - Discharge Summary/Plan Comment DC Time >30 min.: Yes - General Info Date of Service: 04/18/21 Admission Dx/Problem (Free Text: Admission Diagnosis/Problem Admission Diagnosis/Problem Pancreatitis - Review of Systems General: Denies: Fever, Chills HEENT: Reports: No Symptoms Pulmonary: Reports: No Symptoms. Denies: Shortness of Breath, Pleuritic Chest Pain Cardiovascular: Reports: No Symptoms. Denies: Chest Pain, Palpitations Gastrointestinal: Denies: Abdominal Pain, Constipation, Decreased Appetite, Diarrhea, Hematochezia, Melena, Nausea, Vomiting Genitourinary: Denies: Dysuria, Frequency, Burning, Pain Musculoskeletal: Reports: Back Pain Skin: Reports: No Symptoms Neurological: Reports: No Symptoms - Patient Data Vitals - Most Recent: Last Vital Signs Temp 97.7 F 04/18/21 08:00 Pulse 74 04/18/21 08:00 Resp 20 04/18/21 08:00 BP 170/91 H 04/18/21 08:00 Pulse Ox 98 04/18/21 11:00 Weight - Most Recent: 148 lb I&O - Last 24 hours: Intake & Output 04/17/21 04/18/21 04/18/21 22:59 06:59 14:59 Intake Total 517 980 Output Total 600 3250 Balance -83 -2270 Lab Results - Last 24 hrs: Laboratory Results - last 24 hr 04/17/21 04/17/21 04/18/21 Range/Units 12:19 17:33 06:10 WBC 8.69 (4.0-11.0) K/uL RBC 3.88 L (4.50-5.90) M/uL Hgb 12.8 L (13.0-17.0) g/dL Hct 36.6 L (38.0-50.0) % MCV 94.3 (80.0-98.0) fL MCH 33.0 H (27.0-32.0) pg MCHC 35.0 (31.0-37.0) g/dL RDW Std Deviation 40.9 (28.0-62.0) fl RDW Coeff of Jewell 12 (11.0-15.0) % Plt Count 211 (150-400) K/uL MPV 10.80 (7.40-12.00) fL Neut % (Auto) 54.6 (48.0-80.0) % Lymph % (Auto) 29.0 (16.0-40.0) % [place] % (Auto) 12.7 (0.0-15.0) % Eos % (Auto) 3.2 (0.0-7.0) % Baso % (Auto) 0.5 (0.0-1.5) % Neut # (Auto) 4.8 (1.4-5.7) K/uL Lymph # (Auto) 2.5 H (0.6-2.4) K/uL [place] # (Auto) 1.1 H (0.0-0.8) K/uL Eos # (Auto) 0.3 (0.0-0.7) K/uL Baso # (Auto) 0.0 (0.0-0.1) K/uL Nucleated RBC % 0.0 /100WBC Nucleated RBCs # 0 K/uL Sodium (136-148) mmol/L Potassium (3.5-5.1) mmol/L Chloride (98-107) mmol/L Carbon Dioxide (21.0-32.0) mmol/L BUN (7.0-18.0) mg/dL Creatinine (0.8-1.3) mg/dL Est Cr Clr Drug Dosing mL/min Estimated GFR (MDRD) ml/min Glucose (74-106) mg/dL POC Glucose 103 H 79 (70-99) mg/dL Calcium (8.5-10.1) mg/dL Total Bilirubin (0.2-1.0) mg/dL AST (15-37) IU/L ALT (14-63) IU/L Alkaline Phosphatase (46-116) U/L Total Protein (6.4-8.2) g/dL Albumin (3.4-5.0) g/dL Globulin (2.6-4.0) g/dL Albumin/Globulin Ratio (0.9-1.6) 04/18/21 04/18/21 Range/Units 06:10 06:51 WBC (4.0-11.0) K/uL RBC (4.50-5.90) M/uL Hgb (13.0-17.0) g/dL Hct (38.0-50.0) % MCV (80.0-98.0) fL MCH (27.0-32.0) pg MCHC (31.0-37.0) g/dL RDW Std Deviation (28.0-62.0) fl RDW Coeff of Jewell (11.0-15.0) % Plt Count (150-400) K/uL MPV (7.40-12.00) fL Neut % (Auto) (48.0-80.0) % Lymph % (Auto) (16.0-40.0) % [place] % (Auto) (0.0-15.0) % Eos % (Auto) (0.0-7.0) % Baso % (Auto) (0.0-1.5) % Neut # (Auto) (1.4-5.7) K/uL Lymph # (Auto) (0.6-2.4) K/uL [place] # (Auto) (0.0-0.8) K/uL Eos # (Auto) (0.0-0.7) K/uL Baso # (Auto) (0.0-0.1) K/uL Nucleated RBC % /100WBC Nucleated RBCs # K/uL Sodium 139 (136-148) mmol/L Potassium 3.5 (3.5-5.1) mmol/L Chloride 106 (98-107) mmol/L Carbon Dioxide 20.5 L (21.0-32.0) mmol/L BUN 7 (7.0-18.0) mg/dL Creatinine 0.6 L (0.8-1.3) mg/dL Est Cr Clr Drug Dosing 93.12 mL/min Estimated GFR (MDRD) > 60.0 ml/min Glucose 159 H (74-106) mg/dL POC Glucose 163 H (70-99) mg/dL Calcium 7.2 L (8.5-10.1) mg/dL Total Bilirubin 0.6 (0.2-1.0) mg/dL AST 35 (15-37) IU/L ALT 50 (14-63) IU/L Alkaline Phosphatase 94 (46-116) U/L Total Protein 5.0 L (6.4-8.2) g/dL Albumin 2.2 L (3.4-5.0) g/dL Globulin 2.8 (2.6-4.0) g/dL Albumin/Globulin Ratio 0.8 L (0.9-1.6) Med Orders - Current: Current Medications Dextrose/Water (50% Dextrose In Water 50 Ml Syringe) 50 ml IVPUSH ASDIRECTED PRN PRN Reason: Hypoglycemia Enoxaparin Sodium (Enoxaparin 40 Mg/0.4 Ml Syringe) 40 mg SUBCUT Q24H [facility] Last Admin: 04/17/21 11:08 Dose: 40 mg Documented by: Folic Acid (Folic Acid 50 Mg/10 Ml Mdv) 1 mg SUBCUT DAILY [facility] Last Admin: 04/18/21 09:01 Dose: 1 mg Documented by: Glucagon (Glucagon,Human Recombinant 1 Mg Vial) 1 mg IM ASDIRECTED PRN PRN Reason: Hypoglycemia Piperacillin Sod/Tazobactam (Sod 3.375 gm/ Sodium Chloride) 100 mls @ 200 mls/hr IV Q8H [facility] Last Admin: 04/18/21 04:22 Dose: 200 mls/hr Documented by: Sodium Chloride (Normal Saline) 1,000 mls @ 200 mls/hr IV ASDIRECTED JAMES Last Admin: 04/18/21 09:56 Dose: 200 mls/hr Documented by: Insulin Aspart (Insulin Aspart 100 Units/Ml 3 Ml Pen) 0 unit SUBCUT TIDAC [facility]; Protocol Last Admin: 04/18/21 06:54 Dose: 1 unit Documented by: Morphine Sulfate (Morphine 2 Mg/Ml Syringe) 2 mg IVPUSH Q4H PRN PRN Reason: Pain Last Admin: 04/18/21 04:21 Dose: 2 mg Documented by: Ondansetron HCl (Ondansetron 4 Mg Tab.Dis) 4 mg PO Q4H PRN PRN Reason: nausea, able to take PO Discontinued Medications Sodium Chloride (Normal Saline) 1,000 mls @ 999 mls/hr IV STAT STA Stop: 04/16/21 09:07 Last Admin: 04/16/21 08:18 Dose: 999 mls/hr Documented by: Piperacillin Sod/Tazobactam (Sod 3.375 gm/ Sodium Chloride) 50 mls @ 100 mls/hr IV ONETIME ONE Stop: 04/16/21 10:36 Last Admin: 04/16/21 10:33 Dose: 100 mls/hr Documented by: Sodium Chloride (Normal Saline) 1,000 mls @ 125 mls/hr IV ASDIRECTED JAMES Sodium Chloride (Normal Saline) 1,000 mls @ 999 mls/hr IV .Bolus ONE Stop: 04/16/21 14:06 Last Admin: 04/16/21 14:13 Dose: 999 mls/hr Documented by: Sodium Chloride (Normal Saline) 1,000 mls @ 999 mls/hr IV .Bolus ONE Stop: 04/16/21 15:30 Last Admin: 04/16/21 15:28 Dose: 999 mls/hr Documented by: Potassium Chloride/Sodium Chloride (Normal Saline With 40 Meq Kcl) 1,000 mls @ 200 mls/hr IV ASDIRECTED JAMES Potassium Chloride/Sodium Chloride (Normal Saline With 40 Meq Kcl) 1,000 mls @ 200 mls/hr IV ONETIME ONE Stop: 04/17/21 15:59 Last Admin: 04/17/21 10:59 Dose: 200 mls/hr Documented by: Insulin Aspart (Insulin Aspart 100 Units/Ml 3 Ml Pen) 0 unit SUBCUT Q6H [facility]; Protocol Last Admin: 04/17/21 19:21 Dose: Not Given Documented by: Iopamidol (Iopamidol 755 Mg/Ml 500 Ml Multipack Bottle) 100 ml IVPUSH ONETIME STA Stop: 04/16/21 09:20 Last Admin: 04/16/21 09:20 Dose: 100 ml Documented by: Ketorolac Tromethamine (Ketorolac 15 Mg/Ml Sdv) 15 mg IVPUSH STAT STA Stop: 04/16/21 08:09 Last Admin: 04/16/21 08:18 Dose: 15 mg Documented by: Ketorolac Tromethamine (Ketorolac 15 Mg/Ml Sdv) 15 mg IVPUSH Q6H PRN PRN Reason: Pain Stop: 04/22/21 12:18 Lorazepam (Lorazepam 2 Mg/Ml Sdv) 0 mg IVPUSH Q4H PRN; Protocol PRN Reason: [facility] protocol Morphine Sulfate (Morphine 2 Mg/Ml Syringe) 2 mg IVPUSH Q4HR PRN PRN Reason: Pain (severe 7-10) Stop: 04/17/21 12:02 Morphine Sulfate (Morphine 2 Mg/Ml Syringe) 2 mg IVPUSH Q2H PRN PRN Reason: Pain (severe 7-10) Last Admin: 04/17/21 03:34 Dose: 2 mg Documented by: Thiamine HCl (Thiamine 200 Mg/2 Ml Mdv) 100 mg IVPUSH ONETIME ONE Stop: 04/16/21 13:46 Last Admin: 04/16/21 14:22 Dose: 100 mg Documented by: - Exam General: Reports: Alert, Oriented, Cooperative, No Acute Distress Neck: Reports: Supple Lungs: Reports: Clear to Auscultation Cardiovascular: Reports: Regular Rate, Regular Rhythm GI/Abdominal Exam: Normal Bowel Sounds, Soft, Non-Tender, No Distention. No: Guarding, Rigid, Rebound Back Exam: Reports: Normal Inspection, Full Range of Motion Extremities: Normal Inspection. No: Joint Swelling, Nuris's Sign, Limited Range of Motion Skin: Reports: Warm, Dry, Intact Neurological: Reports: No New Focal Deficit
[2021-04-18] MEDS: Enoxaparin 40 MG/0.4 ML Syringe SUBCUT SCH (12:52)
== END 2021-04-18 13:20 | disposition home or self-care (01) | DRG 391 ==
LOC: MW.ED 07:29 → MW.MS 10:52
PROVIDERS: ADMIT Internal Medicine; ATTEND Internal Medicine
DX: K57.32 Diverticulitis of large intestine without perforation or abscess without bleeding (principal); K85.90 Acute pancreatitis without necrosis or infection, unspecified; F17.210 Nicotine dependence, cigarettes, uncomplicated; E11.9 Type 2 diabetes mellitus without complications; E87.6 Hypokalemia; Z20.822 Contact with and (suspected) exposure to COVID-19
CPT/HCPCS: 0240U; 36415; 74177; 74177-26; 76705; 76705-26; 80053; 80061; 81001; 82947; 83690; 83735; 85025; 93005; 96374; 99285-25; J1650; J1815-GY; J1885; J2270; J2543; J3411; J3480; J7030; Q9967

== ENCOUNTER 2022-02-17 11:25 | Emergency (ER) | payer BC ==
[2022-02-17] MEDS ORDERED: Sodium Chloride 0.9% 1,000 ML IV ONE (11:46)
[2022-02-17] MEDS ORDERED: Sodium Chloride 0.9% 10 ML Syringe FLUSH PRN (11:46)
[2022-02-17] MEDS ORDERED: Sodium Chloride 0.9% 2.5 ML Syringe FLUSH PRN (11:46)
[2022-02-17] MEDS ORDERED: Morphine 4 MG/ML VIAL IVPUSH ONE (12:17)
[2022-02-17] MEDS ORDERED: Ondansetron 4 MG/2 ML SDV IVPUSH ONE (12:17)
[2022-02-17 12:18] LABS: BLOOD UREA NITROGEN,BUN 12 mg/dL (7.0-18.0); CARBON DIOXIDE,CO2 24.5 mmol/L (21.0-32.0); CHLORIDE,CL 103 mmol/L (98-107); GLUCOSE RANDOM 184 mg/dL (74-106); LIPASE 134 U/L (73-393); POTASSIUM,K 3.3 mmol/L (3.5-5.1); SODIUM,NA 141 mmol/L (136-148)
[2022-02-17] MEDS ORDERED: Alum Hydro/Mag Hydro/Simeth XS 15 ML, Lidocaine 2% 5 ML PO ONE ×2 (12:22)
[2022-02-17] MEDS ORDERED: LORazepam 2 MG/ML SDV IVPUSH ONE (13:42)
[2022-02-17] MEDS ORDERED: Ondansetron 4 MG Tab.DIS PO ONE (14:22)
== END 2022-02-17 14:52 | disposition home or self-care (01) ==
LOC: MW.ED 11:25
DX: K29.70 Gastritis, unspecified, without bleeding (principal); I10 Essential (primary) hypertension; E11.9 Type 2 diabetes mellitus without complications
CPT/HCPCS: 36415; 80053; 81001; 83690; 85025; 96361; 96374; 96375; 99284; A9270; J2060; J2270; J2405; J3490; J7030

== ENCOUNTER 2022-02-19 07:25 | Emergency (ER) | payer BC ==
[2022-02-19] MEDS ORDERED: LORazepam 2 MG/ML SDV IVPUSH ONE (07:36)
[2022-02-19] MEDS ORDERED: Sodium Chloride 0.9% 1,000 ML IV ONE (07:36)
[2022-02-19 08:21] LABS: BLOOD UREA NITROGEN,BUN 7 mg/dL (7.0-18.0); GLUCOSE RANDOM 197 mg/dL (74-106); LIPASE 112 U/L (73-393)
[2022-02-19 08:25] LABS: CHLORIDE,CL 98 mmol/L (98-107); POTASSIUM,K 3.2 mmol/L (3.5-5.1); SODIUM,NA 138 mmol/L (136-148)
[2022-02-19] MEDS ORDERED: Magnesium Sulfate/Water 2 GM in Premix Bag 1 BAG IV ONE (08:50)
[2022-02-19] MEDS ORDERED: Potassium Chloride 20 MEQ Tab.ER PO ONE (08:50)
[2022-02-19] MEDS ORDERED: Iopamidol 755 MG/ML 500 ML Multipack Bottle IVPUSH STA (08:57)
== END 2022-02-19 10:03 | disposition home or self-care (01) ==
LOC: MW.ED 07:25
DX: K59.00 Constipation, unspecified (principal); E87.6 Hypokalemia; E83.42 Hypomagnesemia; F10.230 Alcohol dependence with withdrawal, uncomplicated
CPT/HCPCS: 36415; 74177; 74177-26; 80053; 80307; 83690; 83735; 84484; 85025; 93005; 96365; 96375; 99284-25; A9270-GY; J2060; J3475; J7030; Q9967

== ENCOUNTER 2022-02-23 13:39 | Emergency (ER) | payer BC ==
[2022-02-23] MEDS ORDERED: Pantoprazole 40 MG in Sodium Chloride 0.9% 10 ML IVPUSH STA (14:26)
[2022-02-23] MEDS ORDERED: Sodium Chloride 0.9% 1,000 ML IV SCH (14:30)
[2022-02-23] MEDS ORDERED: Thiamine 200 MG/2 ML MDV IVPUSH ONE (14:32)
[2022-02-23] MEDS ORDERED: Folic Acid 50 MG/10 ML MDV IV STA ×2 (14:33→15:10)
[2022-02-23 15:42] LABS: BLOOD UREA NITROGEN,BUN 12 mg/dL (7.0-18.0); CARBON DIOXIDE,CO2 26.9 mmol/L (21.0-32.0); CHLORIDE,CL 101 mmol/L (98-107); GLUCOSE RANDOM 163 mg/dL (74-106); LIPASE 98 U/L (73-393); POTASSIUM,K 3.2 mmol/L (3.5-5.1); SODIUM,NA 138 mmol/L (136-148)
== END 2022-02-23 16:25 | disposition home or self-care (01) ==
LOC: MW.ED 13:39
DX: K29.70 Gastritis, unspecified, without bleeding (principal); Z79.899 Other long term (current) drug therapy
CPT/HCPCS: 36415; 80053; 83690; 85025; 96361; 96374; 96375; 99284; C9113; J3411; J3490; J7030; 99283

== ENCOUNTER 2022-03-07 06:54 | Emergency (ER) | payer OTHER, BC ==
[2022-03-07] MEDS ORDERED: Ondansetron 4 MG/2 ML SDV IVPUSH ONE (07:14)
[2022-03-07] MEDS ORDERED: Morphine 4 MG/ML VIAL IVPUSH ONE (07:14)
[2022-03-07] MEDS ORDERED: Sodium Chloride 0.9% 1,000 ML IV ONE (07:14)
[2022-03-07] MEDS ORDERED: Ketorolac 30 MG/ML SDV IVPUSH ONE (07:14)
[2022-03-07 08:03] LABS: POTASSIUM,K 2.9 mmol/L (3.5-5.1)
[2022-03-07] MEDS ORDERED: Potassium Chloride 10% 20 MEQ/15 ML Soln 30 ML UD Cup PO ONE (08:16)
[2022-03-07] MEDS ORDERED: Magnesium Oxide 400 MG Tab PO ONE (08:16)
[2022-03-07] MEDS ORDERED: Multivitamin Tab PO SCH (09:00)
[2022-03-07] MEDS ORDERED: Iopamidol 755 MG/ML 500 ML Multipack Bottle IVPUSH ONE (18:08)
== END 2022-03-07 10:06 | disposition home or self-care (01) ==
LOC: MW.ED 06:54
DX: S29.9XXA Unspecified injury of thorax, initial encounter (principal); R10.10 Upper abdominal pain, unspecified; W23.0XXA Caught, crushed, jammed, or pinched between moving objects, initial encounter
CPT/HCPCS: 36415; 71260; 74177; 80053; 80307; 83690; 83735; 84484; 85025; 93005; 96361; 96374; 96375; 99284; A9270; J1885; J2270; J2405; J7030; Q9967

== ENCOUNTER 2022-08-27 17:05 | Inpatient (IN) | payer SELFPAY ==
[2022-08-27] MEDS ORDERED: Ondansetron 4 MG Tab.DIS PO ONE (17:46)
[2022-08-27 18:25] LABS: CARBON DIOXIDE,CO2 30.8 mmol/L (21.0-32.0); POTASSIUM,K 2.8 mmol/L (3.5-5.1)
[2022-08-27] MEDS ORDERED: Sodium Chloride 0.9% 1,000 ML IV ONE ×2 (18:55→21:13)
[2022-08-27] MEDS ORDERED: Morphine 4 MG/ML Syringe IVPUSH ONE ×2 (18:56→21:29)
[2022-08-27] MEDS: Potassium Chloride 100 ML IV SCH ×2 (19:35→21:59)
[2022-08-27 20:09] LABS: CORONAVIRUS COVID-19 NAA NEGATIVE (NEGATIVE); INFLUENZA A NAA NEGATIVE (NEGATIVE); INFLUENZA B NAA NEGATIVE (NEGATIVE)
[2022-08-27] MEDS ORDERED: Iopamidol 755 MG/ML 500 ML Multipack Bottle IVPUSH STA (20:30)
[2022-08-27] MEDS ORDERED: Albuterol/Ipratropium 3.0-0.5 MG/3 ML Neb Soln NEB PRN (22:45)
[2022-08-27] MEDS: Pantoprazole 40 MG in Sodium Chloride 0.9% 10 ML IVPUSH SCH (23:22)
[2022-08-28] MEDS: Morphine 2 MG/ML SYRINGE IVPUSH PRN ×4 (01:02→14:03)
[2022-08-28] MEDS: Lactated Ringers 1,000 ML IV SCH ×2 (01:03→20:16)
[2022-08-28 06:53] LABS: CARBON DIOXIDE,CO2 30.1 mmol/L (21.0-32.0); POTASSIUM,K 3.1 mmol/L (3.5-5.1)
[2022-08-28] MEDS ORDERED: Lactated Ringers 1,000 ML IV ONE (08:07)
[2022-08-28] MEDS ORDERED: 50% Dextrose in Water 50 ML Syringe IVPUSH PRN (08:09)
[2022-08-28] MEDS ORDERED: Glucagon,Human Recombinant 1 MG Vial IM PRN (08:09)
[2022-08-28 09:07] LABS: HEMOGLOBIN A1C 6.7 %
[2022-08-28] MEDS ORDERED: Potassium Chloride 20 MEQ in Premix Bag 2 BAG IV ONE (09:45)
[2022-08-28] MEDS ORDERED: Potassium Phosphates 30 MMOLE in Sodium Chloride 0.9% 1,000 ML IV ONE (09:50)
[2022-08-28] MEDS ORDERED: LORazepam 2 MG/ML SDV IVPUSH PRN (10:20)
[2022-08-28] MEDS: Insulin Aspart 100 Units/ML 3 ML Pen SUBCUT SCH ×3 (12:27→23:37)
[2022-08-28] MEDS: Lisinopril 10 MG Tab PO SCH (15:55)
[2022-08-28] MEDS: Ondansetron 4 MG/2 ML SDV IVPUSH PRN (17:13)
[2022-08-28] MEDS: oxyCODONE 5 MG Tab PO PRN ×2 (17:14→21:29)
[2022-08-28] MEDS ORDERED: Morphine 2 MG/ML SYRINGE IVPUSH ONE (18:36)
[2022-08-28] MEDS: Thiamine 200 MG/2 ML MDV IVPUSH SCH (20:16)
[2022-08-28] MEDS: Folic Acid 1 MG/0.2 ML UD Syringe IV SCH (20:17)
[2022-08-28] MEDS: Pantoprazole 40 MG in Sodium Chloride 0.9% 10 ML IVPUSH SCH (23:33)
[2022-08-29] MEDS ORDERED: Labetalol 100 MG/20 ML MDV IVPUSH SCH (01:45)
[2022-08-29] MEDS ORDERED: Labetalol 100 MG/20 ML MDV IVPUSH PRN (01:56)
[2022-08-29] MEDS: Lactated Ringers 1,000 ML IV SCH ×3 (04:46→22:43)
[2022-08-29] MEDS: Insulin Aspart 100 Units/ML 3 ML Pen SUBCUT SCH ×3 (05:20→18:27)
[2022-08-29] MEDS: oxyCODONE 5 MG Tab PO PRN ×3 (06:59→22:44)
[2022-08-29 07:53] LABS: CARBON DIOXIDE,CO2 29.2 mmol/L (21.0-32.0); POTASSIUM,K 2.7 mmol/L (3.5-5.1)
[2022-08-29] MEDS: Lisinopril 10 MG Tab PO SCH (08:51)
[2022-08-29] MEDS ORDERED: Potassium Chloride 20 MEQ Tab.ER PO ONE (08:54)
[2022-08-29] MEDS ORDERED: Potassium Chloride 20 MEQ in Premix Bag 2 BAG IV ONE (09:12)
[2022-08-29] MEDS ORDERED: Magnesium Sulfate/Water 2 GM in Premix Bag 1 BAG IV ONE (09:12)
[2022-08-29] MEDS ORDERED: Magnesium Sulfate 2 GM, Potassium Phosphates 30 MMOLE in Sodium Chloride 0.9% 1,000 ML IV ONE (09:30)
[2022-08-29] MEDS: Potassium Chloride 20 MEQ in Premix Bag 1 BAG IV SCH ×2 (09:38→11:37)
[2022-08-29] MEDS: Phosphorus #1 250 MG Tab PO SCH ×3 (11:36→23:06)
[2022-08-29] MEDS: Ondansetron 4 MG/2 ML SDV IVPUSH PRN (17:12)
[2022-08-29] MEDS: Thiamine 200 MG/2 ML MDV IVPUSH SCH (20:29)
[2022-08-29] MEDS: Folic Acid 1 MG/0.2 ML UD Syringe IV SCH (20:29)
[2022-08-29] MEDS: Pantoprazole 40 MG in Sodium Chloride 0.9% 10 ML IVPUSH SCH (22:17)
[2022-08-30] MEDS: Insulin Aspart 100 Units/ML 3 ML Pen SUBCUT SCH ×4 (00:32→17:41)
[2022-08-30] MEDS: Phosphorus #1 250 MG Tab PO SCH (05:27)
[2022-08-30] MEDS: Lactated Ringers 1,000 ML IV SCH ×2 (06:46→15:21)
[2022-08-30 08:28] LABS: CARBON DIOXIDE,CO2 30.9 mmol/L (21.0-32.0); POTASSIUM,K 3.1 mmol/L (3.5-5.1)
[2022-08-30] MEDS: Lisinopril 10 MG Tab PO SCH (08:58)
[2022-08-30] MEDS: oxyCODONE 5 MG Tab PO PRN ×3 (10:58→20:19)
[2022-08-30] MEDS ORDERED: Magnesium Sulfate/Water 2 GM in Premix Bag 1 BAG IV ONE (12:00)
[2022-08-30] MEDS: Potassium Chloride 100 ML IV SCH ×2 (12:48→15:14)
[2022-08-30] MEDS: Folic Acid 1 MG/0.2 ML UD Syringe IV SCH (20:04)
[2022-08-30] MEDS: Thiamine 200 MG/2 ML MDV IVPUSH SCH (20:04)
[2022-08-30] MEDS: Pantoprazole 40 MG in Sodium Chloride 0.9% 10 ML IVPUSH SCH (22:39)
[2022-08-31] MEDS: Lactated Ringers 1,000 ML IV SCH ×2 (00:06→08:07)
[2022-08-31] MEDS ORDERED: Insulin Aspart 100 Units/ML 3 ML Pen SUBCUT SCH (06:00)
[2022-08-31 07:04] LABS: CARBON DIOXIDE,CO2 27.9 mmol/L (21.0-32.0); POTASSIUM,K 3.2 mmol/L (3.5-5.1)
[2022-08-31] MEDS: Lisinopril 10 MG Tab PO SCH (08:08)
[2022-08-31] MEDS: Insulin Aspart 100 Units/ML 3 ML Pen SUBCUT SCH ×2 (08:08→13:13)
[2022-08-31] MEDS: oxyCODONE 5 MG Tab PO PRN ×2 (08:14→15:22)
[2022-08-31] MEDS ORDERED: Potassium Chloride 20 MEQ in Premix Bag 1 BAG IV ONE (12:24)
[2022-08-31] MEDS ORDERED: Potassium Chloride 20 MEQ Tab.ER PO ONE (12:26)
[2022-08-31] MEDS ORDERED: Magnesium Oxide 400 MG Tab PO ONE (13:50)
== END 2022-08-31 15:50 | disposition home or self-care (01) | DRG 439 ==
LOC: MW.ED 17:05 → MW.MS 21:21
PROVIDERS: ADMIT Student in an Organized Health Care Education/Training Program; ATTEND Student in an Organized Health Care Education/Training Program
DX: K85.90 Acute pancreatitis without necrosis or infection, unspecified (principal); F10.239 Alcohol dependence with withdrawal, unspecified; N13.0 Hydronephrosis with ureteropelvic junction obstruction; E83.42 Hypomagnesemia; E86.0 Dehydration; E66.9 Obesity, unspecified; E11.9 Type 2 diabetes mellitus without complications; I10 Essential (primary) hypertension; F17.210 Nicotine dependence, cigarettes, uncomplicated; Z20.822 Contact with and (suspected) exposure to COVID-19; R19.7 Diarrhea, unspecified; E87.6 Hypokalemia; E83.39 Other disorders of phosphorus metabolism; Z79.899 Other long term (current) drug therapy; Z68.25 Body mass index [BMI] 25.0-25.9, adult
CPT/HCPCS: 0240U; 36415; 74177; 74177-26; 76700; 76700-26; 80048; 80053; 80061; 80307; 81001; 82272; 82947; 83036; 83690; 83735; 84100; 84132; 85025; 87045; 87046; 87324; 87338; 87449; 87899; 93005; 96365; 96366; 96375; 96376; 99285-25; A9270-GY; C9113; J1815-GY; J2270; J2405; J3411; J3475; J3480; J3490; J7030; J7120; Q9967

== ENCOUNTER 2023-07-13 18:07 | Observation (INO) | payer SELFPAY ==
[2023-07-13] MEDS ORDERED: Sodium Chloride 0.9% 1,000 ML IV ONE (18:20)
[2023-07-13] MEDS ORDERED: Ondansetron 4 MG/2 ML SDV IVPUSH ONE (18:24)
[2023-07-13 18:33] LABS: BASE EXCESS VENOUS -0.4 (-2.0-3.0); BASOPHILS ABSOLUTE AUTO 0.08 K/uL (0.00-0.20); BASOPHILS PERCENT AUTO 0.8 % (0.0-1.0); BICARBONATE,VENOUS 25 mEq/L (23-28); EOSINOPHILS ABSOLUTE AUTO 0.34 K/uL (0.00-0.45); EOSINOPHILS PERCENT AUTO 3.3 % (0.0-6.0); HEMATOCRIT 32.1 % (42.0-52.0); HEMOGLOBIN 11.4 g/dL (14.0-18.0); IMMATURE GRAN ABSOLUTE AUTO 0.04 K/uL (0.00-0.05); IMMATURE GRAN PERCENT AUTO 0.4 % (0.0-0.4); LYMPHOCYTES ABSOLUTE AUTO 1.63 K/uL (1.00-4.80); LYMPHOCYTES PERCENT AUTO 15.7 % (24.0-44.0); MEAN CORPUSCULAR HEMOGLOBIN 29.4 pg (28.0-32.0); MEAN CORPUSCULAR HGB CONC 35.5 g/dL (32.0-36.0); MEAN CORPUSCULAR VOLUME 82.7 fL (83.0-99.0); MEAN PLATELET VOLUME 10.6 fL (9.4-12.4); MONOCYTES ABSOLUTE AUTO 0.83 K/uL (0.00-0.80); NEUTROPHILS ABSOLUTE AUTO 7.44 K/uL (1.80-7.70); NEUTROPHILS PERCENT AUTO 71.8 % (41.0-71.0); PCO2 VENOUS 45 mmHG (41-51); PH,VENOUS 7.36 (7.31-7.41); PLATELET COUNT,PLT 375 K/uL (150-400); PO2 VENOUS < 30 mmHG; RED BLOOD CELL COUNT 3.88 M/uL (4.52-5.90); WHITE BLOOD CELL COUNT,WBC 10.36 K/uL (3.9-11.3)
[2023-07-13 19:20] LABS: A/G RATIO 0.5 (0.9-1.6); ALBUMIN 2.5 g/dL (3.4-5.0); BILIRUBIN TOTAL 9.1 mg/dL (0.2-1.0); CALCIUM 8.9 mg/dL (8.5-10.1); CARBON DIOXIDE,CO2 23.9 mmol/L (21.0-32.0); EST CRCL DRUG DOSING (CG) 61.49 mL/min; PROTEIN TOTAL,TP 7.3 g/dL (6.4-8.2)
[2023-07-13 19:59] LABS: INR 1.02 (0.86-1.11); PTT,PARTIAL THROMBOPLSTIN TIME 25.8 SEC (23.9-30.7)
[2023-07-13 20:43] LABS: ETHANOL BLOOD MEDICAL <3 mg/dL; LIPASE 185 U/L (16-77)
[2023-07-13] MEDS ORDERED: Iopamidol 755 MG/ML 500 ML Multipack Bottle IVPUSH ONE (20:43)
[2023-07-13 20:46] LABS: HEMOGLOBIN A1C >14.0 %
[2023-07-13 21:44] LABS: APPEARANCE,URINE CLEAR; COLOR,URINE YELLOW; GLUCOSE,URINE >=1000 mg/dL (NEGATIVE); KETONES,URINE 15 mg/dL (NEGATIVE); LEUKOCYTE ESTERASE,URINE NEGATIVE (NEGATIVE); NITRITE,URINE NEGATIVE (NEGATIVE); OCCULT BLOOD,URINE SMALL (NEGATIVE); PROTEIN,URINE 100 mg/dL (NEGATIVE); UROBILINOGEN,URINE 0.2 EU/dL (<2.0)
[2023-07-13 21:51] LABS: BACTERIA,URINE FEW (NEGATIVE); BILIRUBIN,URINE LARGE (NEGATIVE); EPITHELIAL CELLS,URINE RARE (NONE-FEW); MUCUS,URINE LIGHT (NONE-MOD); WBC,URINE 0-1 (0-5/HPF)
[2023-07-13] MEDS ORDERED: Insulin Glargine,Hum.Rec.Anlog 100 UNIT/ML 3 ML Pen SUBCUT STA (22:32)
[2023-07-13] MEDS ORDERED: 50% Dextrose in Water 50 ML Syringe IVPUSH PRN (22:42)
[2023-07-13] MEDS ORDERED: Glucagon,Human Recombinant 1 MG Vial IM PRN (22:42)
[2023-07-13] MEDS: Sodium Chloride 0.9% 1,000 ML IV SCH (23:10)
[2023-07-14] MEDS: Thiamine 200 MG/2 ML MDV IVPUSH ONE ×2 (00:41→00:45)
[2023-07-14] MEDS: Insulin Aspart 100 Units/ML 3 ML Pen SUBCUT SCH ×3 (00:50→11:57)
[2023-07-14] MEDS ORDERED: Acetaminophen 325 MG Tab PO PRN (00:54)
[2023-07-14 06:43] LABS: BASOPHILS ABSOLUTE AUTO 0.09 K/uL (0.00-0.20); BASOPHILS PERCENT AUTO 0.6 % (0.0-1.0); EOSINOPHILS ABSOLUTE AUTO 0.27 K/uL (0.00-0.45); EOSINOPHILS PERCENT AUTO 1.8 % (0.0-6.0); HEMATOCRIT 28.8 % (42.0-52.0); HEMOGLOBIN 10.5 g/dL (14.0-18.0); IMMATURE GRAN ABSOLUTE AUTO 0.07 K/uL (0.00-0.05); IMMATURE GRAN PERCENT AUTO 0.5 % (0.0-0.4); LYMPHOCYTES ABSOLUTE AUTO 1.34 K/uL (1.00-4.80); LYMPHOCYTES PERCENT AUTO 9.1 % (24.0-44.0); MEAN CORPUSCULAR HEMOGLOBIN 29.7 pg (28.0-32.0); MEAN CORPUSCULAR HGB CONC 36.5 g/dL (32.0-36.0); MEAN CORPUSCULAR VOLUME 81.6 fL (83.0-99.0); MEAN PLATELET VOLUME 10.7 fL (9.4-12.4); MONOCYTES ABSOLUTE AUTO 1.18 K/uL (0.00-0.80); NEUTROPHILS ABSOLUTE AUTO 11.83 K/uL (1.80-7.70); PLATELET COUNT,PLT 358 K/uL (150-400); RED BLOOD CELL COUNT 3.53 M/uL (4.52-5.90); WHITE BLOOD CELL COUNT,WBC 14.78 K/uL (3.9-11.3)
[2023-07-14 07:00] LABS: INR 1.02 (0.86-1.11)
[2023-07-14 07:24] LABS: A/G RATIO 0.5 (0.9-1.6); ALBUMIN 1.9 g/dL (3.4-5.0); BILIRUBIN TOTAL 8.3 mg/dL (0.2-1.0); CALCIUM 8.2 mg/dL (8.5-10.1); CARBON DIOXIDE,CO2 22.1 mmol/L (21.0-32.0); CREATININE 0.7 mg/dL (0.8-1.3); EST CRCL DRUG DOSING (CG) 85.93 mL/min; MAGNESIUM 1.6 mg/dL (1.8-2.4); PHOSPHORUS 2.6 mg/dL (2.6-4.7); POTASSIUM,K 3.4 mmol/L (3.5-5.1); PROTEIN TOTAL,TP 5.9 g/dL (6.4-8.2)
[2023-07-14] MEDS ORDERED: Magnesium Sulfate/Water 2 GM in Premix Bag 1 BAG IV ONE (08:30)
[2023-07-14] MEDS: Potassium Chloride 20 MEQ in Premix Bag 1 BAG IV SCH ×2 (09:17→11:50)
[2023-07-14] MEDS ORDERED: Piperacillin/Tazobactam 4.5 GM in Sodium Chloride 0.9% 100 ML IV SCH (09:45)
[2023-07-14] MEDS: Sodium Chloride 0.9% 1,000 ML IV SCH (11:50)
[2023-07-16 13:07] LABS: HBSAG SCREEN Negative (Negative); HCV AB Non Reactive (Non Reactive); HEP A AB, IGM Negative (Negative); HEP B CORE AB, IGM Negative (Negative)
[2023-07-16 14:07] LABS: HCV AB Non Reactive (Non Reactive)
== END 2023-07-14 15:20 ==
LOC: MW.ED 18:07 → MW.MS 23:09
PROVIDERS: ADMIT Internal Medicine; ATTEND Internal Medicine
DX: K85.90 Acute pancreatitis without necrosis or infection, unspecified (principal); E11.65 Type 2 diabetes mellitus with hyperglycemia; E80.6 Other disorders of bilirubin metabolism; R74.01 Elevation of levels of liver transaminase levels; E87.6 Hypokalemia; E83.42 Hypomagnesemia; F10.10 Alcohol abuse, uncomplicated; K29.70 Gastritis, unspecified, without bleeding; I10 Essential (primary) hypertension; F17.210 Nicotine dependence, cigarettes, uncomplicated; Y90.0 Blood alcohol level of less than 20 mg/100 ml; Z79.4 Long term (current) use of insulin; Z79.899 Other long term (current) drug therapy
CPT/HCPCS: 36415; 74177; 74181; 80053; 80074; 80307; 81001; 82803; 82947; 83036; 83605; 83690; 83735; 84100; 85025; 85610; 85730; 86706; 86803; 93005; 96361; 96365; 96366; 96368; 96375; 99285; A9270; G0378; J1815; J2405; J2543; J3411; J3475; J3480; J3490; J7030; Q9967; 93010; 96374; 99284

== ENCOUNTER 2023-08-30 19:23 | Emergency (ER) | payer BC, MEDICAID ==
[2023-08-30] MEDS ORDERED: Sodium Chloride 0.9% 2.5 ML Syringe FLUSH PRN (20:01)
[2023-08-30] MEDS ORDERED: Sodium Chloride 0.9% 10 ML Syringe FLUSH PRN (20:01)
[2023-08-30] MEDS ORDERED: Morphine 4 MG/ML Syringe IVPUSH ONE (20:18)
[2023-08-30] MEDS ORDERED: Ondansetron 4 MG/2 ML SDV IVPUSH ONE (20:18)
[2023-08-30] MEDS ORDERED: Sodium Chloride 0.9% 1,000 ML IV ONE (20:18)
[2023-08-30 20:26] LABS: HEMATOCRIT 23.7 % (42.0-52.0); HEMOGLOBIN 8.5 g/dL (14.0-18.0); MEAN CORPUSCULAR HEMOGLOBIN 30.2 pg (28.0-32.0); MEAN CORPUSCULAR HGB CONC 35.9 g/dL (32.0-36.0); MEAN CORPUSCULAR VOLUME 84.3 fL (83.0-99.0); MEAN PLATELET VOLUME 11.3 fL (9.4-12.4); RED BLOOD CELL COUNT 2.81 M/uL (4.52-5.90)
[2023-08-30 20:31] LABS: WHITE BLOOD CELL COUNT,WBC 52.31 K/uL (3.9-11.3)
[2023-08-30] MEDS ORDERED: Piperacillin/Tazobactam 3.375 GM in Sodium Chloride 0.9% 100 ML IV ONE (20:32)
[2023-08-30] MEDS ORDERED: Iopamidol 755 MG/ML 500 ML Multipack Bottle IVPUSH ONE (20:33)
[2023-08-30 20:42] LABS: LACTIC ACID 0.7 mmol/L (0.4-2.0)
[2023-08-30 20:57] LABS: INR 3.28 (0.86-1.11); PTT,PARTIAL THROMBOPLSTIN TIME 52.8 SEC (23.9-30.7)
[2023-08-30 21:04] LABS: A/G RATIO 0.2 (0.9-1.6); ALANINE AMINOTRANSFERASE,ALT 54 IU/L (14-63); ALBUMIN 1.1 g/dL (3.4-5.0); ASPARTATE AMNIOTRANSFERASE,AST 78 IU/L (15-37); BILIRUBIN TOTAL 11.9 mg/dL (0.2-1.0); BLOOD UREA NITROGEN,BUN 112 mg/dL (7.0-18.0); CALCIUM 7.8 mg/dL (8.5-10.1); CARBON DIOXIDE,CO2 15.1 mmol/L (21.0-32.0); CHLORIDE,CL 101 mmol/L (98-107); CREATININE 4.2 mg/dL (0.8-1.3); GLUCOSE RANDOM 177 mg/dL (74-106); LIPASE 24 U/L (16-77); POTASSIUM,K 4.5 mmol/L (3.5-5.1); PROTEIN TOTAL,TP 6.2 g/dL (6.4-8.2); SODIUM,NA 135 mmol/L (136-148)
[2023-08-30 21:06] LABS: ETHANOL BLOOD MEDICAL <3 mg/dL; MAGNESIUM 2.2 mg/dL (1.8-2.4); TSH ULTRASENSITIVE 0.24 uIU/mL (0.36-3.74)
[2023-08-30 21:09] LABS: CORONAVIRUS COVID-19 NAA NEGATIVE (NEGATIVE); INFLUENZA A NAA NEGATIVE (NEGATIVE); INFLUENZA B NAA NEGATIVE (NEGATIVE); RESPIRATORY SYNCYTIAL VIR NAA NEGATIVE (NEGATIVE)
[2023-08-30 21:10] LABS: ALKALINE PHOSPHATASE 1420 U/L (46-116); ESTIMATED GFR 15 mL/min (>60)
[2023-08-30 21:35] LABS: BAND ABSOLUTE MAN 0.52; BAND PERCENT MAN 1 %; LYMPHOCYTES ABSOLUTE MAN 3.14 K/uL (1.00-4.80); LYMPHOCYTES PERCENT MAN 6 % (24-44); MONOCYTES ABSOLUTE MAN 0.52 K/uL (0.00-0.80); MONOCYTES PERCENT MAN 1 % (0-8); SEG NEUTROPHILS ABSOLUTE MAN 48.13 K/uL (1.80-7.70); SEG NEUTROPHILS PERCENT MAN 92 % (41-71)
[2023-08-30 21:36] LABS: PLATELET COUNT,PLT 670 K/uL (150-400)
[2023-08-30 22:12] LABS: APPEARANCE,URINE SLT CLOUDY; GLUCOSE,URINE 100 mg/dL (NEGATIVE); KETONES,URINE TRACE mg/dL (NEGATIVE); OCCULT BLOOD,URINE MODERATE (NEGATIVE); PH,URINE 6.5 (5.0-8.0); PROTEIN,URINE 30 mg/dL (NEGATIVE)
[2023-08-30 22:13] LABS: LEUKOCYTE ESTERASE,URINE TRACE (NEGATIVE); NITRITE,URINE POSITIVE (NEGATIVE)
[2023-08-30 22:32] LABS: BILIRUBIN,URINE LARGE (NEGATIVE); COLOR,URINE AMBER
[2023-08-30 22:36] LABS: EPITHELIAL CELLS,URINE MODERATE (NONE-FEW)
[2023-08-30 22:37] LABS: AMORPHOUS SEDIMENT,URINE MODERATE (NEGATIVE); BACTERIA,URINE 2+ (NEGATIVE); MUCUS,URINE LIGHT (NONE-MOD); YEAST,URINE MODERATE
== END 2023-08-31 02:25 | disposition other institution (70) ==
LOC: MW.ED 19:23
DX: A41.9 Sepsis, unspecified organism (principal); N39.0 Urinary tract infection, site not specified; N17.9 Acute kidney failure, unspecified; D64.9 Anemia, unspecified; E80.6 Other disorders of bilirubin metabolism; Z79.4 Long term (current) use of insulin; Z79.2 Long term (current) use of antibiotics; E11.9 Type 2 diabetes mellitus without complications; Z20.822 Contact with and (suspected) exposure to COVID-19
CPT/HCPCS: 0241U; 36415; 74176; 80053; 80307; 81001; 82140; 82947; 83605; 83690; 83735; 83880; 84443; 84484; 85025; 85610; 85730; 87040; 87086; 87154; 93005; 96365; 96375; 99285; J2270; J2405; J2543; J3490; J7030; 87077; 87186; 93010